=== PATIENT | male | born 1960 | race Caucasian/White ===

== ENCOUNTER → 2018-02-02 15:55 | Outpatient (CLI) | payer BC, SELFPAY ==
[2018-02-02 16:24] LABS: Absolute Lymphocyte Count 1.47 X10^3/ul (0.83-4.51); Absolute Neutrophil Count 2.6 X10^3/uL (2.0-7.7); Basophil# 0.03 X10^3/uL; Basophil% 0.6 % (0-1); Hematocrit 47.8 % (40-54); Hemoglobin 15.6 g/dl (13.0-16.5); Lymphocyte # 1.47 X10^3/ul (4.0); Lymphocyte % 29.3 % (19-41); Mean Corp Hgb Conc 32.6 g/gl (32-36); Mean Corpuscular Hgb 30.2 pg (27.0-32.0); Mean Corpuscular Volume 92.5 fL (80-94); Mean Platelet Vol. 9.8 fl (6.2-12.0); Monocyte# 0.81 X10^3/uL; Monocyte% 16.2 % (0-10); Neutrophil % 51.9 % (47-70); Platelet Count 245 K/mm3 (150-450); RBC Distribution Width CV 14.4 % (11.6-14.6); RBC Distribution Width SD 49.3 fl (35.1-43.9); Red Blood Count 5.17 M/mm3 (4.6-6.2)
[2018-02-02 16:25] LABS: POSITIVE COUNT NO; POSITIVE DIFFERENTIAL NO; POSITIVE MORPHOLOGY NO
[2018-02-02 17:31] LABS: ALB/GLOB Ratio 1.3 RATIO (0.9-2.4); AST(SGOT) 28 U/L (15-37); Alanine Aminotransfer ALT/SGPT 41 U/L (16-61); Albumin, Serum 3.8 g/dL (3.2-5.0); Alkaline Phosphatase 57 U/L (45-117); Anion Gap 7 (5-15); BUN 11 mg/dL (7-18); BUN/Creat Ratio 8.8 RATIO (10-20); Calcium,Total 8.6 mg/dL (8.5-10.1); Chloride 104 mmol/L (98-107); Creatinine, Serum 1.25 mg/dL (0.70-1.30); EST Glomerular Filtration Rate 63 mL/min (>60); Est Glom Filt Rate - Afr Amer 76 mL/min (>60); Glucose 73 mg/dL (74-106); Potassium 3.8 mmol/L (3.5-5.1); Protein, Total 6.8 g/dL (6.4-8.2); Sodium Level 142 mmol/L (136-145); Thyroid Stim Hormone (TSH) 0.76 uIU/mL (0.358-3.74)
== END ==
PROVIDERS: Family Provider Family Medicine Geriatric Medicine; PCP Family Medicine Geriatric Medicine; Visit Provider Family Medicine Geriatric Medicine
DX: F52.8 Other sexual dysfunction not due to a substance or known physiological condition (principal); I10 Essential (primary) hypertension
CPT/HCPCS: 36415; 80053; 84403; 84443; 85025

== ENCOUNTER → 2018-05-26 09:05 | Outpatient (CLI) | payer BC, SELFPAY ==
[2018-05-26 10:58] LABS: Hematocrit 49.3 % (40-54); Hemoglobin 15.9 g/dl (13.0-16.5); Mean Corp Hgb Conc 32.3 g/gl (32-36); Mean Corpuscular Hgb 30.2 pg (27.0-32.0); Mean Corpuscular Volume 93.5 fL (80-94); Mean Platelet Vol. 9.9 fl (6.2-12.0); Platelet Count 263 K/mm3 (150-450); RBC Distribution Width CV 15.1 % (11.6-14.6); Red Blood Count 5.27 M/mm3 (4.6-6.2); White Blood Count 5.5 K/mm3 (4.4-11.0)
[2018-05-26 10:59] LABS: Scan Indicated on CBC? Y/N NO
[2018-05-26 13:48] LABS: ALB/GLOB Ratio 1.2 RATIO (0.9-2.4); AST(SGOT) 52 U/L (15-37); Alanine Aminotransfer ALT/SGPT 68 U/L (16-61); Albumin, Serum 3.6 g/dL (3.2-5.0); Alkaline Phosphatase 64 U/L (45-117); Anion Gap 8 (5-15); BUN 13 mg/dL (7-18); BUN/Creat Ratio 10.4 RATIO (10-20); Calcium,Total 8.6 mg/dL (8.5-10.1); Chloride 105 mmol/L (98-107); Creatinine, Serum 1.25 mg/dL (0.70-1.30); EST Glomerular Filtration Rate 63 mL/min (>60); Est Glom Filt Rate - Afr Amer 76 mL/min (>60); Estradiol 47.1 pg/mL; Globulin 3.1 g/dL (2.2-4.2); Glucose 74 mg/dL (74-106); PSA,Total- Diagnostic 0.66 ng/mL (0.0-4.0); Potassium 3.9 mmol/L (3.5-5.1); Protein, Total 6.7 g/dL (6.4-8.2); Sodium Level 144 mmol/L (136-145)
== END ==
PROVIDERS: Family Provider Family Medicine Geriatric Medicine; PCP Family Medicine Geriatric Medicine
DX: E29.1 Testicular hypofunction (principal)
CPT/HCPCS: 80053; 82670; 84153; 85027

== ENCOUNTER → 2018-07-14 17:26 | Outpatient (CLI) | payer BC, SELFPAY ==
--- NOTE | 2018-07-14 17:50 | RAD_ITS ---
STUDY: X-RAY CHEST REASON FOR EXAM: Male, 58 years old. Preoperative left knee surgery TECHNIQUE: PA and lateral views of the chest. COMPARISON: 10/02/2013 FINDINGS: The lungs are clear and expanded. There is no demonstrated pleural abnormality. Normal size heart. Normal mediastinum and tashi. Normal visualized pulmonary arteries. Normal visualized aortic arch and descending thoracic aorta. Normal visualized thoracic spine. Normal visualized ribs, clavicles, and shoulders. There is no demonstrated abnormality of the visualized soft tissue structures of the upper abdomen. RAD/Chest PA and Lateral IMPRESSION: Normal x-ray examination of the chest. Electronically Signed: Ruddy Garza DO at 16:52 EDT Tel , Service support ,
[2018-07-14 17:52] LABS: Absolute Lymphocyte Count 1.26 X10^3/ul (0.83-4.51); Absolute Neutrophil Count 2.9 X10^3/uL (2.0-7.7); Basophil# 0.04 X10^3/uL; Basophil% 0.8 % (0-1); Eosinophil# 0.07 X10^3/uL; Eosinophils% 1.4 % (0-5); Hematocrit 48.9 % (40-54); Hemoglobin 16.2 g/dl (13.0-16.5); Lymphocyte # 1.26 X10^3/ul (4.0); Lymphocyte % 24.5 % (19-41); Mean Corp Hgb Conc 33.1 g/gl (32-36); Mean Corpuscular Hgb 30.8 pg (27.0-32.0); Mean Platelet Vol. 9.7 fl (6.2-12.0); Monocyte# 0.91 X10^3/uL; Monocyte% 17.7 % (0-10); Neutrophil # 2.86 X10^3/uL (2.7-7.7); Neutrophil % 55.4 % (47-70); Platelet Count 237 K/mm3 (150-450); RBC Distribution Width CV 14.2 % (11.6-14.6); RBC Distribution Width SD 48.5 fl (35.1-43.9); Red Blood Count 5.26 M/mm3 (4.6-6.2); White Blood Count 5.2 K/mm3 (4.4-11.0)
[2018-07-14 17:53] LABS: POSITIVE COUNT NO; POSITIVE DIFFERENTIAL NO; POSITIVE MORPHOLOGY NO
[2018-07-14 17:55] LABS: Prothrombin Time (Protime)PT. 13.1 SECONDS (11.7-14.9)
[2018-07-14 17:56] LABS: Partial Thromboplast Time 26.2 Seconds (24.1-36.2)
[2018-07-14 18:14] LABS: Anion Gap 7 (5-15); BUN 16 mg/dL (7-18); BUN/Creat Ratio 12.5 RATIO (10-20); Calcium,Total 8.8 mg/dL (8.5-10.1); Chloride 104 mmol/L (98-107); Creatinine, Serum 1.28 mg/dL (0.70-1.30); EST Glomerular Filtration Rate 61 mL/min (>60); Est Glom Filt Rate - Afr Amer 74 mL/min (>60); Glucose 68 mg/dL (74-106); Potassium 4.2 mmol/L (3.5-5.1); Sodium Level 141 mmol/L (136-145)
== END ==
PROVIDERS: Family Provider Family Medicine Geriatric Medicine; PCP Family Medicine Geriatric Medicine; Referring Provider Family Medicine Geriatric Medicine; Visit Provider Family Medicine Geriatric Medicine
DX: Z01.810 Encounter for preprocedural cardiovascular examination (principal)
CPT/HCPCS: 36415; 71046; 80048; 85025; 85610; 85730

== ENCOUNTER 2018-08-14 15:36 | Emergency (ER) | payer BC, SELFPAY ==
[2018-08-14 15:41] VITALS: BP 142/80; PULSE 92; RESP 18; TEMP 36.8; O2SAT 95; BMI 28.0
--- NOTE | 2018-08-14 16:05 | ED.VISSUMM ---
- ER Visit Summary Date of Service: 08/14/18 Chief Complaint: Right knee pain History of Present Illness: The patient is a 58 M who presents with pain in his right knee that became worse today. Patient states he had recent right total knee replacement. Patient states he has been taking his oxycodone as prescribed. Patient states he called his surgeon's office on Wednesday to get a refill. Patient states he was not told that he had to go into the office to strip picker a prescription for a refill. Patient states the pain is constant but improves somewhat with elevation. Patient states the oxycodone does help with the pain however it only seems to last 3 hours instead of 4. Patient states he will go to his surgeon's office tomorrow to strip picker a refill of his prescription. Patient is just requesting a prescription to get him through until tomorrow. Physical Examination: Vital signs are stable. Patient is afebrile. Patient is in no acute distress. Musculoskeletal exam reveals tenderness and edema over the right knee. There is no erythema or warmth. There is no pain with short arc range of motion. Patient states the swelling is similar to his prior knee surgeries. Sensation was intact to light touch bilaterally. Posterior tibial pulses are equal bilaterally. The remaining physical exam is within normal limits. Emergency Department Course and Treatment: OARRS report was reviewed. Patient did have a prescription of oxycodone filled on 08/06/2018 for 7 days worth of oxycodone. Patient was given a prescription for 1 day supply of oxycodone. Patient will follow-up with his surgeon tomorrow for further refills. Patient understood and was agreeable with the plan. All questions were answered. Disposition: Discharge home Impression: Postoperative pain right knee This note was generated with My[employer] dictation software. It may contain incorrect words, spelling, and punctuation that were not noted in review of the chart prior to signing ED Disposition - Plan for ED Patient: Disposition: Home or Assisted Living Chief Complaint: Med Refill Diagnosis: Postoperative pain of right knee Instructions: Med Refill Prescriptions: Oxycodone [Oxyir] 5 mg PO Q4H PRN PRN 1 Days #6 tab PRN Reason: Pain Referrals: Gino Aponte Chi, MD [Primary Care Provider] -
--- NOTE | 2018-08-14 16:09 | ED.DCSUM_ITS ---
- ER Visit Summary Date of Service: 08/14/18 Chief Complaint: Right knee pain History of Present Illness: The patient is a 58 M who presents with pain in his right knee that became worse today. Patient states he had recent right total knee replacement. Patient states he has been taking his oxycodone as pr escribed. Patient states he called his surgeon's office on Wednesday to get a refill. 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 Patient states the pain is constant but improves somewhat with elevation. Patient states the oxycodone does help with the pain however it only seems to last 3 hours instead of 4. Patient states he will go to his surgeon's office tomorrow to pick and shovel man a refill of his prescription. Patient is just requesting a prescription to get him through until tomorrow. Physical Examination: Vital signs are stable. Patient is afebrile. Patient is in no acute distress. Musculoskeletal exam reveals tenderness and edema over the right knee. There is no erythema or warmth. There is no pain with short arc range of motion. Patient states the swelling is similar to his prior knee surgeries. Sensation was intact to light touch bilaterally. Posterior tibial pulses are equal bilaterally. The remaining physical exam is within normal limits. Emergency Department Course and Treatment: OARRS report was reviewed. Patient did have a prescription of oxycodone filled on 08/06/2018 for 7 days worth of oxycodone. Patient was given a prescription for 1 day supply of oxycodone. Patient will follow-up with his surgeon tomorrow for further refills. Patient understood and was agreeable with the plan. All questions were answered. Disposition: Discharge home Impression: Postoperative pain right knee This note was generated with [employer] dictation software. It may contain incorrect words, spelling, and punctuation that were not noted in review of the chart prior to signing ED Disposition - Plan for ED Patient: Disposition: Home or Assisted Living Chief Complaint: Med Refill Diagnosis: Postoperative pain of right knee Instructions: Med Refill Prescriptions: Oxycodone [Oxyir] 5 mg PO Q4H PRN PRN 1 Days #6 tab PRN Reason: Pain Referrals: Gino Aponte Chi, MD [Primary Care Provider] -
== END 2018-08-14 16:17 | disposition home or self-care (01) ==
PROVIDERS: Emergency Provider Emergency Medicine; Family Provider Family Medicine Geriatric Medicine; PCP Family Medicine Geriatric Medicine
DX: M25.561 Pain in right knee (principal); G89.18 Other acute postprocedural pain; Z96.651 Presence of right artificial knee joint
CPT/HCPCS: 99282

== ENCOUNTER → 2018-09-12 15:58 | Outpatient (CLI) | payer BC, SELFPAY ==
[2018-09-12 17:09] LABS: Absolute Lymphocyte Count 1.34 X10^3/ul (0.83-4.51); Absolute Neutrophil Count 4.9 X10^3/uL (2.0-7.7); Basophil# 0.02 X10^3/uL; Basophil% 0.3 % (0-1); Eosinophil# 0.06 X10^3/uL; Eosinophils% 0.8 % (0-5); Hematocrit 49.6 % (40-54); Hemoglobin 16.2 g/dl (13.0-16.5); Lymphocyte # 1.34 X10^3/ul (4.0); Lymphocyte % 18.1 % (19-41); Mean Corp Hgb Conc 32.7 g/gl (32-36); Mean Corpuscular Hgb 30.5 pg (27.0-32.0); Mean Corpuscular Volume 93.2 fL (80-94); Mean Platelet Vol. 10.1 fl (6.2-12.0); Monocyte# 1.05 X10^3/uL; Monocyte% 14.2 % (0-10); Neutrophil # 4.92 X10^3/uL (2.7-7.7); Neutrophil % 66.5 % (47-70); Platelet Count 264 K/mm3 (150-450); RBC Distribution Width CV 14.2 % (11.6-14.6); RBC Distribution Width SD 48.5 fl (35.1-43.9); Red Blood Count 5.32 M/mm3 (4.6-6.2); White Blood Count 7.4 K/mm3 (4.4-11.0)
[2018-09-12 17:10] LABS: POSITIVE COUNT NO; POSITIVE DIFFERENTIAL NO; POSITIVE MORPHOLOGY NO
[2018-09-12 17:34] LABS: AST(SGOT) 37 U/L (15-37); Alanine Aminotransfer ALT/SGPT 76 U/L (16-61); Albumin, Serum 3.5 g/dL (3.2-5.0); Alkaline Phosphatase 72 U/L (45-117); Anion Gap 11 (5-15); BUN 12 mg/dL (7-18); BUN/Creat Ratio 8.7 RATIO (10-20); Calcium,Total 8.7 mg/dL (8.5-10.1); Chloride 100 mmol/L (98-107); Creatinine, Serum 1.38 mg/dL (0.70-1.30); EST Glomerular Filtration Rate 56 mL/min (>60); Est Glom Filt Rate - Afr Amer 68 mL/min (>60); Globulin 3.5 g/dL (2.2-4.2); Glucose 79 mg/dL (74-106); PSA,Total - Annual Screen 0.67 ng/mL (0.00-4.00); Potassium 3.8 mmol/L (3.5-5.1); Sodium Level 141 mmol/L (136-145); Thyroid Stim Hormone (TSH) 0.69 uIU/mL (0.358-3.74)
--- OUTSIDE RECORDS SUMMARY | 2018-10-25 14:32 | XMS RPT_ITS ---
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 Result Comment: GFR Calc LAB L501.1300 10-20 RATIO Normal BUN/CRE 10.4 LAB L501.1500 6.4-8.2 g/dL T Normal PROT 6.7 LAB L501.1800 3.2-5.0 g/dL Normal ALB 3.6 LAB L501.1950 2.2-4.2 g/dL Normal GLOB 3.1 LAB L501.2000 0.9-2.4 RATIO Normal A/G 1.2 LAB L501.2200 8.5-10.1 mg/dL CA Normal 8.6 LAB L501.4100 15-37 U/L High AST 52 LAB L501.4305 45-117 U/L Normal ALK P 64 LAB L501.4405 16-61 U/L High ALT 68 LAB L501.4600 0.20-1.00 mg/dL T Normal BILI 0.60 LAB L501.5300 136-145 mmol/L NA Normal 144 LAB L501.5600 3.5-5.1 mmol/L K Normal 3.9 LAB L501.5900 98-107 mmol/L CL Normal 105 LAB L501.6100 21.0-32.0 mmol/L Normal CO2 31.0 LAB L501.6200 5-15 Normal GAP 8 Performed By: #### L500.4050, L501.9940, L3300.1750 #### [facility] [address] [place], [address] PSA,TOTAL- DIAGNOSTIC Collected: 05/26/2018 Status: F Source: [place] 9:05 AM [facility] REPOSITORY Order Comment: Comments: Dihydrotestosterone (DHT) (Frozen Plasma) TYPE CODE TESTS RESULT OUT OF RANGE REFERENCE UNITS LAB L501.9940 0.0-4.0 ng/mL PSA, Normal DIAGNOSTIC 0.66 Result Comment: This test was performed using the TPSA assay method for the [employer] chemistry system. Values obtained with different assay methods cannot be used interchangably. When changing PSA assays in the course of monitoring a patient, additional sequential testing should be carried out to confirm baseline values. Performed By: #### L500.4050, L501.9940, L3300.1750 #### [facility] [address] [place], [address] ESTRADIOL Collected: 05/26/2018 Status: F Source: [place] 9:05 AM [facility] REPOSITORY Order Comment: Comments: Dihydrotestosterone (DHT) (Frozen Plasma) TYPE CODE TESTS RESULT OUT OF RANGE REFERENCE UNITS LAB L3300.1750 pg/mL Normal ESTRADIOL 47.1 Result Comment: NORMAL REFERENCE RANGES FEMALE FOLLICULAR 21.4 - 164.8 pg/mL MID-CYCLE PEAK 49.9 - 367.2 pg/mL LUTEAL 40.2 - 259.0 pg/mL POST-MENOPAUSAL ON MHT <11.0 - 462.1 pg/mL NOT ON MHT <11.0 - 58.3 pg/mL MALE <11.0 - 52.5 pg/mL NOTE: [facility] HAS CONFIRMED THE DRUG FULVETRANT (FASLODEX) MAY CAUSE FALSELY ELEVATED ESTRADIOL RESULTS WHEN USING THIS TEST METHOD. IF PATIENT IS TAKING FULVESTRANT AN ALTERNATIVE METHOD SHOULD BE USED TO DETERMINE ESTRADIOL CONCENTRATION. Performed By: #### L500.4050, L501.9940, L3300.1750 #### [facility] [address] [place], [address] MISCELLANEOUS LAB Collected: 05/26/2018 Status: F Source: [place] PROCEDURE 9:05 AM [facility] REPOSITORY Order Comment: Comments: Dihydrotestosterone (DHT) (Frozen Plasma) Test(s) Ordered: Dihydrotestosterone (DHT) (Frozen Plasma) TYPE CODE TESTS RESULT OUT OF RANGE REFERENCE UNITS LAB L801.1541 Normal [facility] Result Comment: TEST RESULT UNITS REFERENCE INTERVAL Dihydrotestosterone 97 High ng/dL Reference Range: Adult Male: 30 - 85 TESTING PERFORMED AT [facility]. ORIGINAL REPORT ON FILE IN LAB CONTAINS ADDITIONAL TEST SITE INFORMATION. Performed By: #### L801.1541 #### [facility] [place], [address] CBC W/DIFF, AUTOMATED Collected: 02/02/2018 Status: F Source: [place] 3:57 PM [facility] REPOSITORY TYPE CODE TESTS RESULT OUT OF RANGE REFERENCE UNITS LAB L100.1000 4.4-11.0 K/mm3 Normal WBC 5.0 LAB L100.1200 4.6-6.2 M/mm3 Normal RBC 5.17 LAB L100.1300 13.0-16.5 g/dl Normal HGB 15.6 LAB L100.1400 40-54 % Normal HCT 47.8 LAB L100.1500 80-94 fL Normal MCV 92.5 LAB L100.1600 27.0-32.0 pg Normal MCH 30.2 LAB L100.1700 32-36 g/gl Normal MCHC 32.6 LAB L100.1810 11.6-14.6 % Normal RDW CV 14.4 LAB L100.1820 35.1-43.9 fl High RDW SD 49.3 LAB L100.1900 150-450 K/mm3 Normal PLT 245 LAB L100.2000 6.2-12.0 fl Normal MPV 9.8 LAB L100.2100 47-70 % Normal NEUT% 51.9 LAB L100.2200 19-41 % Normal LY% 29.3 LAB L100.2300 0-10 % High MONO% 16.2 LAB L100.2400 0-5 % Normal EO% 2.0 LAB L100.2500 0-1 % Normal BASO% 0.6 LAB L100.2550 0.0-0.9 % Normal IM GRAN % 0.000 Result Comment: IG% - Immature Granulocytes (promyelocytes, myelocytes and metamyelocytes) > 1% indicates that a LEFT SHIFT is Present. LAB L100.2620 2.0-7.7 X10 3/uL Normal Absolute Neut 2.6 LAB L100.2720 0.83-4.51 X10 3/ul Normal Absolute Lymph 1.47 Performed By: #### L100.0100 #### [facility] [address] [place], [address] COMPREHENSIVE METABOLIC Collected: 02/02/2018 Status: F Source: [place] LUC[place] 3:57 PM [facility] REPOSITORY TYPE CODE TESTS RESULT OUT OF RANGE REFERENCE UNITS LAB L501.0100 74-106 mg/dL Low GLU 73 Result Comment: Please note revised GLUCOSE reference range effective 2017. LAB L501.1000 7-18 mg/dL Normal BUN 11 LAB L501.1100 0.70-1.30 mg/dL Normal CREAT,SERUM 1.25 Result Comment: The validity of the calculated GFR AND GFRAA in patients over 70 years has not been determined. Clinical correlation is essential. LAB L501.1110 >60 mL/min Normal EST GFR 63 Result Comment: Non- GFR Calc LAB L501.1115 >60 mL/min Normal EST GFR - AA 76 Result Comment: GFR Calc LAB L501.1300 10-20 RATIO Low BUN/CRE 8.8 LAB L501.1500 6.4-8.2 g/dL Normal T PROT 6.8 LAB L501.1800 3.2-5.0 g/dL Normal ALB 3.8 LAB L501.1950 2.2-4.2 g/dL Normal GLOB 3.0 LAB L501.2000 0.9-2.4 RATIO Normal A/G 1.3 LAB L501.2200 8.5-10.1 mg/dL Normal CA 8.6 LAB L501.4100 15-37 U/L Normal AST 28 LAB L501.4305 45-117 U/L Normal ALK P 57 LAB L501.4405 16-61 U/L Normal ALT 41 LAB L501.4600 0.20-1.00 mg/dL Normal T BILI 0.20 LAB L501.5300 136-145 mmol/L Normal NA 142 LAB L501.5600 3.5-5.1 mmol/L Normal K 3.8 LAB L501.5900 98-107 mmol/L Normal CL 104 LAB L501.6100 21.0-32.0 mmol/L Normal CO2 31.0 LAB L501.6200 5-15 Normal GAP 7 Performed By: #### L500.4050, L501.9520 #### [facility] [address] [place], [address] THYROID STIM HORMONE Collected: 02/02/2018 Status: F Source: [place] (TSH) 3:57 PM [facility] REPOSITORY TYPE CODE TESTS RESULT OUT OF RANGE REFERENCE UNITS LAB L501.9520 0.358-3.74 uIU/mL Normal TSH 0.76 Performed By: #### L500.4050, L501.9520 #### [facility] [address] [place], [address] TESTOSTERONE, SERUM TOTAL Collected: 02/02/2018 Status: F Source: [place] 3:57 PM [facility] REPOSITORY TYPE CODE TESTS RESULT OUT OF REFERENCE UNITS RANGE LAB L509.3000 ng/dL Testosterone Normal > 1500.00 Result Comment: NORMAL REFERENCE RANGES MALE AGE <50 123.06 - 813.86 ng/dL MALE AGE >50 89.98 - 780.10 ng/dL FEMALE PREMENOPAUSE AGE 21 - 60 9.01 - 47.94 ng/dL FEMALE POSTMENOPAUSE AGE 45 - 89 <7.00 - 45.62 ng/dL REFERENCE RANGE AND METHODOLOGY CHANGED 10/06/2017 Performed By: #### L509.3000 #### [facility] [address] [place], [address] ALLERGIES ALLERGIES DATE TYPE / CODE NAME / CODE REACTION SEVERITY SOURCE 08/14/2018 Drug No Known Unknown [facility] Allergy/416 Allergies/K00111 Hospital 584082(SNOM 0388(RXNORM) Repository ED CT) Drug NO KNOWN [facility] Class/21066 ALLERGIES [facility] [place] 1003(SNOMED Repository CT) ENCOUNTERS ENCOUNTERS ADMIT/DISCHARGE ACCOUNT ADMITTING ENCOUNTER LOCATION SOURCE NUMBER CLASS 10/04/2018 [id number] [facility] ing:PT Repository 09/12/2018 [id number] [facility] ing:POLAB3 Repository 08/14/2018/08/14/20 [id number] Emergency [address] ing:ED Repository 07/18/2018/07/19/20 [id number] Ambulatory [address] Repository 07/14/2018 [id number] [facility] ing:LAB Repository 06/16/2018 [id number] [facility] ing:LAB.FUTUR Repository E 05/26/2018 [id number] Ambulatory [facility] ing:LABSPEC Repository 02/02/2018 [id number] [facility] ing:POLAB3 Repository PAYERS PAYERS ENCOUNTER GUARANTOR PAYER SUBSCRIBER SOURCE 10/04/2018 BERHANE A Primary BERHANE A [place] [id number] Insurance:ANTHEMPolic HUXLEYDOB: [facility] y Number: [id number] [id number] Repository 44[address]Fbi: (330) Date:1016-26-38AA [phone] () [id number] [place] [address] 48637NK: 10/04/2018 Secondary NOT GIVENUNK [place] Insurance:SELF PAY [facility] Number: Effective Repository Date:2018-08-03 09/12/2018 BERHANE A Primary BERHANE A [place] [id number] Insurance:ANTHEMPolic HUXLEYDOB: [facility] y Number: [id number] [id number] Repository 91952Wed: (330) Date:4026-12-67JC [phone] () [id number], [place] [address]PB: 09/12/2018 Secondary NOT GIVENUNK [place] Insurance:SELF PAY [facility] Number: Effective Repository Date:2018-09-12 08/14/2018 BERHANE A Primary BERHANE A [place] [id number] Insurance:ANTHEMPolic HUXLEYDOB: [facility] y Number: [id number] [id number] Repository 83[address]Gvk: (330) Date:4824-10-26IY [phone] () 769371FYTSRSDJOVANY ALY 175[address]FV: 08/14/2018 Secondary NOT GIVENUNK [place] Insurance:SELF PAY [facility] Number: Effective Repository Date:2018-08-14 07/14/2018 Ber[place] Primary BERHANE HUXLEYDOB: [place] [id number] Insurance:ANTHEMPolic [id number] y Number: [place], [place] [id number] Repository [address]Zff: (330) Date:7411-70-70LS [phone] () 018120KIPTYVMJOVANY ALY [address]14[address]JS: 07/14/2018 Secondary NOT GIVENUNK [place] Insurance:SELF PAY [facility] Number: Effective Repository Date:2018-07-14 06/16/2018 Berhane Primary BERHANE HUXLEYDOB: [place] [id number] Insurance:ANTHEMPolic [id number] y Number: [place], [place] [id number] Repository [address]Mde: (330) Date:4059-68-98BM [phone] () 074759WUECPMNJOVANY ALY [address]93[address]NR: 06/16/2018 Secondary NOT GIVENUNK [place] Insurance:SELF PAY [facility] Number: Effective Repository Date:2018-06-16 05/26/2018 Berhane Primary [place] HUXLEYDOB: [place] [id number] Insurance:ANTHEMPolic [id number] y Number: [place], [place] [id number] Repository [address]Yql: (330) Date:4528-63-48ZD [phone] () [id number] ALY [address]22[address]TR: 05/26/2018 Secondary NOT GIVENUNK [place] Insurance:SELF PAY [facility] Number: Effective Repository Date:2018-05-26 02/02/2018 Ber[place] Primary BENTON HUXLEYDOB: [place] [id number] Insurance:ANTHEMPolic [id number] [facility] y Number: [place], [place] [id number] Repository [address]Sbi: (330) Date:2532-30-44KA [phone] () [id number], [place] [address]YY: 02/02/2018 Secondary NOT GIVENUNK [place] Insurance:SELF PAY [facility] Number: Effective Repository Date:2018-02-02
== END ==
PROVIDERS: Family Provider Family Medicine Geriatric Medicine; PCP Family Medicine Geriatric Medicine; Visit Provider Family Medicine Geriatric Medicine
DX: E23.6 Other disorders of pituitary gland (principal); I10 Essential (primary) hypertension; Z12.5 Encounter for screening for malignant neoplasm of prostate
CPT/HCPCS: 36415; 80053; 84153; 84403; 84443; 85025; G0103

== ENCOUNTER 2018-10-07 09:00 | Outpatient (RCR) | payer BC, SELFPAY ==
--- NOTE | 2018-08-09 12:47 | HP.PTEVAL_ITS ---
Patient's Visit Information HYUN GUADALUPE is a 58 year old M referred to Physical Therapy by Juvenal Mead DO with a diagnosis of R knee OA, S/P TKA 08/08. Date of Evaluation: 08/09/18 Physical Therapist: Kofi Duvall DPT, OC - Visit Plan Frequency: 3x /Week Duration: 4-6 Weeks Plan: 3x/week for 4-6 weeks for: 1. knee ROM and patellar mobs. 2. knee and LE strength to tolerance. 3. gait training weaning walker/return to function activities(enjoys weight lifting). 4. steps. 5. ice as needed. - Subjective Subjective: Had full R TKA yesterday at [facility]. This was due to pain in R knee and three previous surgeries. Had L SUSY 5 yrs ago. Does not sleep well on pain pills, taking percoset as directed. It helps. pain today 9/10 in muscles from quad to calf and anterior knee. Using wh walker to get around, not needed prior. HEP: AP often, walks with walker in hallway a lot(every hour). Has SCDs at home. Has ice at home which he is using. Has 3 grandkids oldest 7. 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 Off for a while now. Likely 6 weeks. Can go back 1/2 day first week if needed. Dresses self, bathrroom self. 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 ADLS a chore but can do them. Lives alone and has two steps but has ramp. Neighbor drove him today. Enjoys weight lifting freeweights at [employer]. Wants to get back to that. Enjoys watching [employer] play soccer. - Pain R knee Pain Intensity (Out of 10): 4 Pain Intensity Range: 8 - Objective Walks mod I with wh walker 300 feet mod I. Without walker can ambulate safely but more noticeable L knee stiffness adn less heel off and toe off. Trasnfers with UE I. Bed mobility I. R Knee AROM -8 to 58 degrees today, L knee 0-125. patella on R is stiff all directions and painful, knee is mildly swollen and dressed appropriately with steve wrap. Hip and knee AROM WFL B. ankle strength B 5/5, hip flexion R 3+ with pain, abd 4/5. R knee strength NST but able to do 40 degree ARC of knee ext seated. Sensation B LE WNL to gross light touch. Standing balance is good with wide CHERELLE and R knee stays flexed until verbally cued. Pt is slow and hesitant with all R knee movements and lifts, SLR is painful and hard to do but able. - tamar,. - Goals Goal 1:: 0-115 aROM R knee to allow for ADLs without pain. Goal Time Frame: 4-6 Weeks Goal 2:: Patient walk in community without AD or increased pain Goal Time Frame: 4-6 Weeks Goal 3:: Steps reciprocally without rail Goal Time Frame: 4-6 Weeks Goal 4:: Have plan for patient to return to work Goal Time Frame: 4-6 Weeks Goal 5:: Pt feel back to 80% of activities with pain <1/10 Goal Time Frame: 4-6 Weeks - Rehabilitation Potential Physical Therapy Diagnosis: R knee s/p TKA 08/08 Rehabilitation Potential: Fair - Anticipated Interventions Patient/Client Instruction: Educate patient on: Condition, Plan of Care For the Purpose of:: To decrease pain, To increase ROM, To improve muscle performance and motor function, To increase tolerance to activity/condition/position, To improve ability of physical actions for home/community/work/leisure Therapeutic Exercise to Include: Strength training, Flexibilty training, Gait and locomotor training, Passive ROM, Active ROM For the Purpose of:: To decrease pain, To increase ROM, To improve muscle performance and motor function, To improve ability to perform ADL's, To increase tolerance to activity/condition/position, To improve ability of physical actions for home/community/work/leisure Manual Therapy Techniques to Include: Passive ROM Comment: patellar mobs For the Purpose of:: To increase ROM Cryotherapy (ice pack, ice massage): Yes For the Purpose of:: To decrease pain, To decrease swelling/inflammation Thank you for the opportunity to evaluate your patient. For Medicare and Medicare HMO plans, please review the plan of care and approve it. It will need to be FAXED BACK to us at [phone] for Medicare purposes. Please let me know if there are questions or concerns regarding this plan of care. Physician Signature: Date:
--- NOTE | 2018-09-27 15:24 | HP.PTREVAL ---
Juvenal Mead, DO, It has been my pleasure to treat HYUN GUADALUPE over the last 11 visits for R knee OA, S/P TKA 08/08. Please see the progress note below for an update on the physical therapy plan of care! Subjective: Motion is better. Has muscle soreness in medial R knee. Objective/Function: -2 to 105 degrees. -1 to 108 PROM after stretch. Walking wella nd ascending/[place] ending steps without rail with slight hitch on R descending. Plan Plan: 3-5x/week x 2-4 for ROM managemnt post manip. Continue manual and ROM, progress steps and back to strength when 110 AROM is easy. Goals Goal 1:: 0-115 aROM R knee to allow for ADLs without pain. Goal Time Frame: 4-6 Weeks Goal Progress: Progressing Goal 2:: Patient walk in community without AD or increased pain Goal Time Frame: 4-6 Weeks Goal Progress: Goal Met Goal 3:: Steps reciprocally without rail Goal Time Frame: 4-6 Weeks Goal Progress: Goal Met Goal 4:: Have plan for patient to return to work Goal Time Frame: 4-6 Weeks Goal Progress: approp Goal 5:: Pt feel back to 80% of activities with pain <1/10 Goal Time Frame: 4-6 Weeks Goal Progress: approp Anticipated Interventions Patient/Client Instruction: Educate patient on: Condition, Plan of Care For the Purpose of:: To decrease pain, To increase ROM, To improve muscle performance and motor function, To increase tolerance to activity/condition/position, To improve ability of physical actions for home/community/work/leisure Therapeutic Exercise to Include: Strength training, Flexibilty training, Gait and locomotor training, Passive ROM, Active ROM For the Purpose of:: To decrease pain, To increase ROM, To improve muscle performance and motor function, To improve ability to perform ADL's, To increase tolerance to activity/condition/position, To improve ability of physical actions for home/community/work/leisure Manual Therapy Techniques to Include: Passive ROM Comment: patellar mobs For the Purpose of:: To increase ROM Cryotherapy (ice pack, ice massage): Yes For the Purpose of:: To decrease pain, To decrease swelling/inflammation Please do not hesitate to contact me at [phone] by phone or if you have questions or concerns regarding this new plan of care! Sincerely, Kofi Duvall, DPT, OC
--- NOTE | 2018-10-07 10:58 | HP.PTDCSUM ---
HP - PT D/C Summary It has been my pleasure to treat HYUN GUADALUPE under orders from Juvenal Mead DO, for the diagnosis of R knee OA, S/P TKA 08/08 for a total of 18 visit(s). Discharge Date: 10/07/18 Please see the following information for a summary of their discharge status. - Subjective Subjective: Better every day. Pain level at 2/10 this week. Comfortable at rest. Feels loose. Climbed old school bleachers the other day withotu a problem. Couldn't do it for 15 years. Sleeping well. Sees doctor 10/12. Plans to return to Work when released hoepfull early October and half days if possible. activities at home normal. Back at ex at gym and not avoiding anything. that he wants to do. - Pain R knee Pain Intensity (Out of 10): 0 - Overall Improvement % Improvement: 95 - Objective Objective/Function: -2 to 112 AROM today. Walking well without antalgia, slight deficit in knee ext at plant. Steps are reciprocal and normal without rail, slight weakness descending. OVERALL DOING EXCELLENT AND LIKELY WILL BE READY TO rtw IN NEW YEAR...WOULD RECOMMEND HALF DAYS FOR A WEEK IF AVAILABLE. - Goals Goal 1:: 0-115 aROM R knee to allow for ADLs without pain. Goal Progress: Progressing Goal 2:: Patient walk in community without AD or increased pain Goal Progress: Goal Met Goal 3:: Steps reciprocally without rail Goal Progress: Goal Met Goal 4:: Have plan for patient to return to work Goal Progress: Goal Met Goal 5:: Pt feel back to 80% of activities with pain <1/10 Goal Progress: Goal Met - Plan Plan: D/C - D/C Information Discharge Comments: Pt doign well and will f/u with doctor next week and likely RTW early next year. I recommend half days to start fro a week if available. If there are questions or concerns regarding this patient's physical therapy, please feel free to call me at [phone]. Thank you for the referral of this patient. Sincerely, Kofi Duvall, DPT, OCS, CSCS
== END 2018-10-07 19:00 | disposition home or self-care (01) ==
LOC: PT 09:00
PROVIDERS: Family Provider Family Medicine Geriatric Medicine; PCP Family Medicine Geriatric Medicine; Visit Provider Orthopaedic Surgery
DX: M17.11 Unilateral primary osteoarthritis, right knee (principal); M25.561 Pain in right knee
CPT/HCPCS: 97110; 97140; 97162; 97530

== ENCOUNTER → 2018-11-08 18:35 | Outpatient (CLI) | payer BC, SELFPAY ==
[2018-11-08 19:57] LABS: Hematocrit 51.7 % (40-54); Hemoglobin 16.9 g/dl (13.0-16.5); Mean Corp Hgb Conc 32.7 g/gl (32-36); Mean Corpuscular Hgb 30.7 pg (27.0-32.0); Mean Corpuscular Volume 93.8 fL (80-94); Mean Platelet Vol. 10.8 fl (6.2-12.0); Platelet Count 288 K/mm3 (150-450); RBC Distribution Width CV 14.6 % (11.6-14.6); RBC Distribution Width SD 49.8 fl (35.1-43.9); Red Blood Count 5.51 M/mm3 (4.6-6.2); Scan Indicated on CBC? Y/N NO; White Blood Count 5.3 K/mm3 (4.4-11.0)
[2018-11-08 20:08] LABS: AST(SGOT) 57 U/L (15-37); Alanine Aminotransfer ALT/SGPT 109 U/L (16-61); Albumin, Serum 3.5 g/dL (3.2-5.0); Alkaline Phosphatase 85 U/L (45-117); Anion Gap 8 (5-15); BUN 14 mg/dL (7-18); BUN/Creat Ratio 10.5 RATIO (10-20); Calcium,Total 8.3 mg/dL (8.5-10.1); Chloride 105 mmol/L (98-107); Creatinine, Serum 1.33 mg/dL (0.70-1.30); EST Glomerular Filtration Rate 58 mL/min (>60); Est Glom Filt Rate - Afr Amer 71 mL/min (>60); Estradiol 16.4 pg/mL; Globulin 3.5 g/dL (2.2-4.2); Glucose 60 mg/dL (74-106); Potassium 3.8 mmol/L (3.5-5.1); Sodium Level 142 mmol/L (136-145)
--- OUTSIDE RECORDS SUMMARY | 2019-01-10 23:25 | XMS RPT_ITS ---
:1960 Author Organization OHIP Care Team Providers Name Role Phone ROSETTA LAMB (RENÉE) Attending Unavailable GERBER BROWN Attending Unavailable Fadi, Gino Chi Primary Care Unavailable Fadi, Gino Chi Attending Unavailable Fadi, Gino Chi Primary Care Unavailable Fadi, Gino Chi Attending Unavailable Fadi, Gino Chi Referring Unavailable Fadi, Gino Chi Primary Care Unavailable Fadi, Gino Chi Attending Unavailable Fadi, Gino Chi Primary Care Unavailable Fadi, Gino Chi Primary Care Unavailable SchwDawood kovacsic Attending Unavailable Fadi, Gino Chi Attending Unavailable Fadi, Gino Chi Primary Care Unavailable GERBER BROWN Attending Unavailable GERBER BROWN Referring Unavailable Fadi, Gino Chi Primary Care Unavailable DulJuvenal holloway Attending Unavailable Fadi, Gino Chi Primary Care Unavailable PROBLEMS PROBLEMS DATE TYPE CONDITION / CODE ATTENDING STATUS SOURCE 10/12/2018 Unknown M17.11 - Unilateral Juvenal Mead Active [place] primary [facility] osteoarthritis, [facility] right knee / Repository M17.11(ICD-10) 08/14/2018 Unknown G89.18 - Other acute Kofi Bains Active [place] postprocedural pain [facility] / G89.18(ICD-10) Hospital Repository 07/14/2018 Unknown Z01.810 - Encounter Fadi, Gino Chi Active [place] for preprocedural [facility] cardiovascular Hospital examination / Repository Z01.810(ICD-10) 05/26/2018 Unknown 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 / Community E29.1(ICD-10) Hospital Repository PROCEDURES PROCEDURES No Procedure Records FoundRESULTS RESULTS CBC-COMPLETE BLOOD CNT Collected: 11/08/2018 Status: F Source: [place] NO DIFF 1:30 PM [facility] HOSPITAL REPOSITORY TYPE CODE TESTS RESULT OUT OF RANGE REFERENCE UNITS LAB L100.1000 4.4-11.0 K/mm3 Normal WBC 5.3 LAB L100.1200 4.6-6.2 M/mm3 Normal RBC 5.51 LAB L100.1300 13.0-16.5 g/dl High HGB 16.9 LAB L100.1400 40-54 % Normal HCT 51.7 LAB L100.1500 80-94 fL Normal MCV 93.8 LAB L100.1600 27.0-32.0 pg Normal MCH 30.7 LAB L100.1700 32-36 g/gl Normal MCHC 32.7 LAB L100.1810 11.6-14.6 % Normal RDW CV 14.6 LAB L100.1820 35.1-43.9 fl High RDW SD 49.8 LAB L100.1900 150-450 K/mm3 Normal PLT 288 LAB L100.2000 6.2-12.0 fl Normal MPV 10.8 Performed By: #### L100.0500 #### [facility] [address] [place], [address] COMPREHENSIVE METABOLIC Collected: 11/08/2018 Status: F Source: [facility] 1:30 PM [facility] REPOSITORY TYPE CODE TESTS RESULT OUT OF RANGE REFERENCE UNITS LAB L501.0100 74-106 mg/dL Low GLU 60 Result Comment: Please note revised GLUCOSE reference range effective 2017. LAB L501.1000 7-18 mg/dL Normal BUN 14 LAB L501.1100 0.70-1.30 mg/dL High CREAT,SERUM 1.33 Result Comment: The validity of the calculated GFR AND GFRAA in patients over 70 years has not been determined. Clinical correlation is essential. LAB L501.1110 >60 mL/min Low EST GFR 58 Result Comment: Non- GFR Calc LAB L501.1115 >60 mL/min Normal EST GFR - AA 71 Result Comment: GFR Calc LAB L501.1300 10-20 RATIO Normal BUN/CRE 10.5 LAB L501.1500 6.4-8.2 g/dL T Normal PROT 7.0 LAB L501.1800 3.2-5.0 g/dL Normal ALB 3.5 LAB L501.1950 2.2-4.2 g/dL Normal GLOB 3.5 LAB L501.2000 0.9-2.4 RATIO Normal A/G 1.0 LAB L501.2200 8.5-10.1 mg/dL Low CA 8.3 LAB L501.4100 15-37 U/L High AST 57 Result Comment: Slight Hemolysis, Result may be falsely increased. LAB L501.4305 45-117 U/L Normal ALK P 85 LAB L501.4405 16-61 U/L High ALT 109 LAB L501.4600 0.20-1.00 mg/dL Normal T BILI 0.30 LAB L501.5300 136-145 mmol/L Normal NA 142 LAB L501.5600 3.5-5.1 mmol/L Normal K 3.8 Result Comment: Slight Hemolysis, Result may be falsely increased. LAB L501.5900 98-107 mmol/L Normal CL 105 LAB L501.6100 21.0-32.0 mmol/L Normal CO2 29.0 LAB L501.6200 5-15 Normal 8 GAP Performed By: #### L500.4050, L3300.1750 #### [facility] [address] [place], [address] ESTRADIOL Collected: 11/08/2018 Status: F Source: [place] 1:30 PM [facility] REPOSITORY TYPE CODE TESTS RESULT OUT OF RANGE REFERENCE UNITS LAB L3300.1750 pg/mL Normal ESTRADIOL 16.4 Result Comment: NORMAL REFERENCE RANGES FEMALE FOLLICULAR [...] DETERMINE ESTRADIOL CONCENTRATION. Performed By: #### L500.4050, L3300.1750 #### [facility] [address] [place], [address] PT D/C SUMMARY (1) Observed: 10/10/2018 Status: F Source: [place] 6:39 AM [facility] REPOSITORY [facility] [address] [place] [address] [address] [place] [address] / REHABILITATION SERVICES DISCHARGE SUMMARY MR#: [id number] Acct: [id number] Name: BERHANE GUADALUPE Rep #: [id number] : 1960 58 From: Kofi Duvall DPT, OCS, CSCS Referring Dr.: Juvenal Mead Status: REG RCR Insurance: ANTHEM SELF PAY INSURANCE HP - PT D/C Summary It has been my pleasure to treat BERHANE GUADALUPE under orders from Juvenal Mead DO, for the diagnosis of R knee OA, S/P TKA 08/08 for a total of 18 visit(s). Discharge Date: 10/07/18 Please see the following information for a summary of their discharge status. - Subjective Subjective: Better every day. Pain level at 2/10 this week. Comfortable at rest. Feels loose. Climbed old school bleachers the other day withotu a problem. Couldn't do it for 15 years. Sleeping well. Sees doctor 10/12. Plans to return to Work when released hoepfull early October and half days if possible. activities at home normal. Back at ex at gym and not avoiding anything. that he wants to do. - Pain R knee Pain Intensity (Out of 10): 0 - Overall Improvement % Improvement: 95 - Objective Objective/Function: -2 to 112 AROM today. Walking well without antalgia, slight deficit in knee ext at plant. Steps are reciprocal and normal without rail, slight weakness descending. OVERALL DOING EXCELLENT AND LIKELY WILL BE READY TO rtw IN NEW YEAR...WOULD RECOMMEND HALF DAYS FOR A WEEK IF AVAILABLE. - Goals Goal 1:: 0-115 aROM R knee to allow for ADLs without pain. Goal Progress: Progressing Goal 2:: Patient walk in community without AD or increased pain Goal Progress: Goal Met Goal 3:: Steps reciprocally without rail Goal Progress: Goal Met Goal 4:: Have plan for patient to return to work Goal Progress: Goal Met Goal 5:: Pt feel back to 80% of activities with pain <1/10 Goal Progress: Goal Met - Plan Plan: D/C - D/C Information Discharge Comments: Pt doign well and will f/u with doctor next week and likely RTW early next year. I recommend half days to start fro a week if available. If there are questions or concerns regarding this patient's physical therapy, please feel free to call me at [phone]. Thank you for the referral of this patient. Sincerely, Kofi Duvall ALFREDT, OCS, CSCS <Electronically signed by Kofi Duvall DPT, OCS, CSCS> 10/10/18 0639 CC: Juvenal Mead; Gino Aponte MD EBG Signed RE-EVALUATION - PT (1) Observed: 09/29/2018 Status: F Source: [place] 9:07 AM [facility] REPOSITORY [facility] [address] [place] [address] Fax REEVALUATION / MEDICARE RECERTIFICATION PHYSICAL THERAPY MR#: [id number] Acct: [id number] Name: BERHANE GUADALUPE Rep #: [id number] : 1960 58 From: Kofi Duvall DPT, OCS, CSCS Referring Dr.: Juvenal Mead Status: REG RCR Insurance: ANTHEM SELF PAY INSURANCE Juvenal Mead, DO, It has been my pleasure to [...] do not hesitate to contact me at [phone] by phone or if you have questions or concerns regarding this new plan of care! Sincerely, Kofi Duvall, DPT, OC <Electronically signed by Kofi Duvall DPT, OCS, CSCS> 09/29/18 0907 CC: Juvenal Mead; Gino Aponte MD EBG Signed For Medicare only, by signing this I certify the plan of care. Physicians Signature Date CBC W/DIFF, AUTOMATED Collected: 09/12/2018 Status: F Source: [place] 3:59 PM [facility] REPOSITORY TYPE CODE TESTS RESULT OUT OF [...] Lymph 1.34 Performed By: #### L100.0100 #### [facility] [address], [place], [id number] TESTOSTERONE, SERUM TOTAL Collected: 09/12/2018 Status: F Source: [place] 3:59 PM [facility] REPOSITORY TYPE CODE TESTS RESULT OUT OF [...] CHANGED 10/06/2017 Performed By: #### L509.3000 #### [facility] [address], [place], [id number] COMPREHENSIVE METABOLIC Collected: 09/12/2018 Status: F Source: [place]UC[place] 3:59 PM [facility] REPOSITORY TYPE CODE TESTS RESULT OUT OF [...] Performed By: #### L500.4050, L501.9520, L501.9910 #### [facility] [address] [place], [address] THYROID STIM HORMONE Collected: 09/12/2018 Status: F Source: [place] (TSH) 3:59 PM [facility] REPOSITORY TYPE CODE TESTS RESULT OUT OF RANGE REFERENCE UNITS LAB L501.9520 0.358-3.74 uIU/mL Normal TSH 0.69 Performed By: #### L500.4050, L501.9520, L501.9910 #### [facility] [address] [place], [address] PSA,TOTAL - ANNUAL Collected: 09/12/2018 Status: F Source: [place] SCREEN 3:59 PM [facility] REPOSITORY TYPE CODE TESTS RESULT OUT OF RANGE REFERENCE UNITS LAB L501.9910 0.00-4.00 ng/mL Normal PSA,TOT 0.67 SCREEN Result Comment: This test was performed using the TPSA assay method for the griddig chemistry system. Values obtained with different assay methods cannot be used interchangably. When changing PSA assays in the course of monitoring a patient, additional sequential testing should be carried out to confirm baseline values. Performed By: #### L500.4050, L501.9520, L501.9910 #### [facility] [address] 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 Patient states the pain is constant but improves somewhat with elevation. Patient states the oxycodone does help with the pain however it only seems to last 3 hours instead of 4. Patient states he will go to his surgeon's office tomorrow to bean picker machine operator a refill of his prescription. Patient is [...] right knee This note was generated with [employer] dictation software. It may contain incorrect words, [...] problems, contact your Primary Care Provider. Call [email or web address] ([phone]) or report to the closest Emergency Room. Call 911 if necessary. 08/14/18 5371 <Electronically signed by Kofi Bains DO> Date Kofi Bains DO Cosigner Signature (If Indicated): Date CC: Gino Aponte MD INITAL EVALUATION (1) Observed: 08/10/2018 Status: F Source: [place] - PT 7:10 AM [facility] REPOSITORY [facility] [address] [place] [address] Fax REHABILITATION SERVICES INITIAL EVALUATION MR#: [id number] Acct: [id number] Name: BERHANE GUADALUPE Rep #: [id number] : 1960 58 From: Kofi SIMONT, OCS, CSCS Referring Dr.: Juvenal Mead Status: REG RCR Insurance: [employer] SELF PAY INSURANCE Patient's Visit Information BERHANE GUADALUPE is a 58 year old M referred to Physical Therapy by Juvenal Mead DO with a diagnosis of R knee OA, S/P TKA 08/08. Date of Evaluation: 08/09/18 Physical Therapist: Kofi Duvall DPT, OC - Visit Plan Frequency: 3x /Week Duration: 4-6 Weeks Plan: 3x/week for 4-6 weeks for: 1. knee ROM and patellar mobs. 2. knee and LE strength to tolerance. 3. gait training weaning walker/return to function activities(enjoys weight lifting). 4. steps. 5. ice as needed. - Subjective Subjective: Had full R TKA yesterday at [facility]. This was due to pain in R [...] is using. Has 3 grandkids oldest 7. 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 Off for a while now. Likely 6 weeks. Can go back 1/2 day first week if needed. Dresses self, bathrroom self. Has seat loop tacker form hip surgery. ADLS a chore but can do them. Lives alone and has two steps but has ramp. Neighbor drove him today. Enjoys weight lifting freeweights at [employer]. Wants to get back to that. Enjoys watching grandkids play soccer. - Pain R knee Pain [...] to be FAXED BACK to us at [phone] for Medicare purposes. Please let me know if there are questions or concerns regarding this plan of care. Physician Signature: Date: <Electronically signed by Kofi Duvall DPT, OCS, CSCS> 08/10/18 0710 CC: Juvenal Mead; Gino Aponte MD EBG Signed For Medicare only, by signing this I certify the plan of care. Physicians Signature Date PROGRESS Observed: 07/18/2018 Status: COMPLETED Source: [place] 8:52 AM [facility] REPOSITORY O ID: [id number] Author: Rosetta Paige) Mark Service: (none) Author Type: Physician Lime Boiler Type: Progress Notes Filed: 07/18/2018 9:07 AM [...] AND LATERAL Observed: 07/14/2018 Status: F Source: [place] 5:50 PM [facility] REPOSITORY [facility] Imaging Services [facility] [place] [address] Chest PA and Lateral MR#: [id number] Acct: [id number] Name: BERHANE GUADALUPE Rep #: [id number] : 1960 M 58 From: Ruddy Garza DO PCP: Gino Aponte MD, Chi Status: REG CLI Study: Chest PA and Lateral Date of Exam: 07/14/18 Exam# [id number] Ordering Dr: Gino Aponte MD STUDY: X-RAY [...] Service support , CC: Gino Aponte MD Fruit Bar Maker: Signed CBC W/DIFF, AUTOMATED Collected: 07/14/2018 Status: F Source: [place] 5:34 PM [facility] REPOSITORY TYPE CODE TESTS RESULT OUT OF [...] Lymph 1.26 Performed By: #### L100.0100 #### [facility] [address] [place], [address] PROTHROMBIN TIME W/INR Collected: 07/14/2018 Status: F Source: [place] 5:34 PM [facility] REPOSITORY TYPE CODE TESTS RESULT OUT OF RANGE REFERENCE UNITS LAB L300.4150 11.7-14.9 SECONDS Normal PROTIME 13.1 LAB L300.4200 Normal INR 1.0 Performed By: #### L300.3900, L300.4310 #### [facility] [address] [place], [address] PARTIAL THROMBOPLAST Collected: 07/14/2018 Status: F Source: [place] TIME 5:34 PM [facility] REPOSITORY TYPE CODE TESTS RESULT OUT OF RANGE REFERENCE UNITS LAB L300.4310 24.1-36.2 Seconds Normal PTT 26.2 Performed By: #### L300.3900, L300.4310 #### [facility] [address] [place], [place], [address] BASIC METABOLIC Collected: 07/14/2018 Status: F Source: [place] PROFILE (BMP) 5:34 PM [facility] REPOSITORY TYPE CODE TESTS RESULT OUT OF [...] GAP 7 Performed By: #### L500.2500 #### [facility] [address] [place], [address] CBC-COMPLETE BLOOD CNT Collected: 05/26/2018 Status: F Source: [place] NO DIFF 9:05 AM [facility] REPOSITORY TYPE CODE TESTS RESULT OUT OF [...] MPV 9.9 Performed By: #### L100.0500 #### [facility] [address] [place], [address] COMPREHENSIVE METABOLIC Collected: 05/26/2018 Status: F Source: [facility] 9:05 AM [facility] REPOSITORY Order Comment: Comments: Dihydrotestosterone (DHT) (Frozen [...] Performed By: #### L500.4050, L501.9940, L3300.1750 #### [facility] [address] [place], [address] PSA,TOTAL- DIAGNOSTIC Collected: 05/26/2018 Status: F Source: [place] 9:05 AM [facility] REPOSITORY Order Comment: Comments: Dihydrotestosterone (DHT) (Frozen Plasma) TYPE CODE TESTS RESULT OUT OF RANGE REFERENCE UNITS LAB L501.9940 0.0-4.0 ng/mL PSA, Normal DIAGNOSTIC 0.66 Result Comment: This test was performed using the TPSA assay method for the griddig chemistry system. Values obtained with different assay methods cannot be used interchangably. When changing PSA assays in the course of monitoring a patient, additional sequential testing should be carried out to confirm baseline values. Performed By: #### L500.4050, L501.9940, L3300.1750 #### [facility] [address] [place], [address] ESTRADIOL Collected: 05/26/2018 Status: F Source: [place] 9:05 [facility] REPOSITORY Order Comment: Comments: Dihydrotestosterone (DHT) (Frozen [...] Performed By: #### L500.4050, L501.9940, L3300.1750 #### [facility] [address] [place], [address] MISCELLANEOUS LAB Collected: 05/26/2018 Status: F Source: [place] PROCEDURE 9:05 AM [facility] REPOSITORY Order Comment: Comments: Dihydrotestosterone (DHT) (Frozen Plasma) Test(s) Ordered: Dihydrotestosterone (DHT) (Frozen Plasma) TYPE CODE TESTS RESULT OUT OF RANGE REFERENCE UNITS LAB L801.1541 Normal [facility] LAB TEST Result Comment: TEST RESULT UNITS REFERENCE INTERVAL Dihydrotestosterone 97 High ng/dL Reference Range: Adult Male: 30 - 85 TESTING PERFORMED AT [facility]. ORIGINAL REPORT ON FILE IN LAB CONTAINS ADDITIONAL TEST SITE INFORMATION. Performed By: #### L801.1541 #### [facility] [address] [place], [address] CBC W/DIFF, AUTOMATED Collected: 02/02/2018 Status: F Source: [place] 3:57 PM [facility] REPOSITORY TYPE CODE TESTS RESULT OUT OF [...] Lymph 1.47 Performed By: #### L100.0100 #### [facility] [address] [place] [address]. [place], [address] COMPREHENSIVE METABOLIC Collected: 02/02/2018 Status: F Source: [facility] 3:57 PM [facility] REPOSITORY TYPE CODE TESTS RESULT OUT OF [...] 7 Performed By: #### L500.4050, L501.9520 #### [facility] [address], [place], [address] THYROID STIM HORMONE Collected: 02/02/2018 Status: F Source: [place] (TSH) 3:57 PM [facility] REPOSITORY TYPE CODE TESTS RESULT OUT OF RANGE REFERENCE UNITS LAB L501.9520 0.358-3.74 uIU/mL Normal TSH 0.76 Performed By: #### L500.4050, L501.9520 #### [facility] [address] [place], [address] TESTOSTERONE, SERUM TOTAL Collected: 02/02/2018 Status: F Source: [place] 3:57 PM [facility] REPOSITORY TYPE CODE TESTS RESULT OUT OF [...] CHANGED 10/06/2017 Performed By: #### L509.3000 #### [facility] [address], [address] ALLERGIES ALLERGIES DATE TYPE / CODE NAME / CODE REACTION SEVERITY SOURCE 08/14/2018 Drug No Known Unknown [facility] Allergy/416 Allergies/Y02564 Hospital 239272(SNOM 0388(RXNORM) Repository ED CT) Drug NO KNOWN [facility] Class/56217 ALLERGIES [facility] 1003(SNOMED Repository CT) ENCOUNTERS ENCOUNTERS ADMIT/DISCHARGE ACCOUNT ADMITTING ENCOUNTER LOCATION SOURCE NUMBER CLASS 11/08/2018 [id number] [facility] ing:LABSPEC Repository 10/07/2018/10/07/20 [id number] Ambulatory [address] ing:PT Repository 09/12/2018 [id number] Ambulatory [facility] ing:POLAB3 Repository 08/14/2018/08/14/20 [id number] Emergency [address] ing:ED Repository 07/18/2018/07/19/20 [id number] Ambulatory [address] Repository 07/14/2018 [id number] Ambulatory [facility] ing:LAB Repository 06/16/2018 [id number] [facility] ing:LAB.FUTUR Repository E 05/26/2018 [id number] [facility] ing:LABSPEC Repository 02/02/2018 [id number] [facility] ing:POLAB3 Repository PAYERS PAYERS ENCOUNTER GUARANTOR PAYER SUBSCRIBER SOURCE 11/08/2018 BERHANE A Primary BERHANE A [place] [id number] Insurance:ANTHEMPolic HUXLEYDOB: Community CHRISTINE y [place]: [id number] [id number] Repository [address]Fsw: (330) Date:0362-38-59EG [phone] () JOVANY DELACRUZ [address]BG: 11/08/2018 Secondary NOT GIVENUNK [place] Insurance:SELF PAY [facility] Number: Effective Repository Date:2018-11-08 10/07/2018 BERHANE A Primary BERHANE A [place] [id number] Insurance:ANTHEMPolic HUXLEYDOB: Community CHRISTINE y Number: [id number] [facility] [id number] Repository [address]Ekd: (330) Date:6679-74-64CG [phone] () JOVANY DELACRUZ [address]ZI: 10/07/2018 Secondary NOT GIVENUNK [place] Insurance:SELF PAY [facility] Number: Effective Repository Date:2018-08-03 09/12/2018 BERHANE A Primary BERHANE A [place] [id number] Insurance:ANTHEMPolic HUXLEYDOB: Community CHRISTINE y Number: [id number] Central Community [id number] Repository [address]Osr: (330) Date:3141-36-27KV [phone] () [id number], [place] [address]GP: 09/12/2018 Secondary NOT GIVENUNK [place] Insurance:SELF PAY [facility] Number: Effective Repository Date:2018-09-12 08/14/2018 BERHANE A Primary BERHANE A [place] [id number] Insurance:ANTHEMPolic HUXLEYDOB: Community CHRISTINE y Number: [id number] [id number] Repository [address]Sen: (330) Date:2222-97-24JL [phone] () [id number] ALY [address]EG: 08/14/2018 Secondary NOT GIVENUNK [place] [facility] Effective Repository Date:2018-08-14 07/14/2018 Berhane Primary BERHANELUISITO GUADALUPEDOB: [place] [id number] Insurance:ANTHEMPolic [id number] Community Christine y [facility]: [id number] Repository [address]Oqn: (330) Date:4040-33-52UM [phone] () [id number], [place] [address]ZX: 07/14/2018 Secondary NOT GIVENUNK [place] Insurance:SELF PAY [facility] Number: Effective Repository Date:2018-07-14 06/16/2018 Berhane Primary BERHANE GUADALUPEDOB: [place] [id number] Insurance:ANTHEMPolic [id number] y [facility]: [id number] Repository [address]Vod: (330) Date:1768-29-04SP [phone] () [address], [place] [address]IK: 06/16/2018 Secondary NOT GIVENUNK [place] Insurance:SELF PAY [facility] Number: Effective Repository Date:2018-06-16 05/26/2018 Berhane Primary BENTON GUADALUPEDOB: [place] [id number] Insurance:ANTHEMPolic [id number] [facility] y Number: [place], [place] [id number] Repository [address]Rqp: (330) Date:9194-88-92AV [phone] () 475[address]GJVJBFM, [place] [address]HS: 05/26/2018 Secondary NOT GIVENUNK [place] Insurance:SELF PAY [facility] Number: Effective Repository Date:2018-05-26 02/02/2018 Berhane Primary BENTON COLLINSDOB: [place]onal[place] [id number] Insurance:ANTHEMPolic [id number] Community [place] y Number: [facility] [id number] Repository [address]Qfy: (330) Date:5771-53-44WR [phone] () [address]KLNQU, [place] [address]IV: 02/02/2018 Secondary NOT GIVENUNK [place] Insurance:SELF PAY [facility]: Effective Repository Date:2018-02-02
== END ==
PROVIDERS: Family Provider Family Medicine Geriatric Medicine; PCP Family Medicine Geriatric Medicine
DX: E29.1 Testicular hypofunction (principal)
CPT/HCPCS: 80053; 82670; 85027

== ENCOUNTER → 2019-02-28 17:06 | Outpatient (CLI) | payer BC, SELFPAY ==
[2019-02-28 17:33] LABS: Hematocrit 49.5 % (40-54); Hemoglobin 16.6 g/dl (13.0-16.5); Mean Corp Hgb Conc 33.5 g/gl (32-36); Mean Corpuscular Hgb 31.2 pg (27.0-32.0); Mean Platelet Vol. 10.4 fl (6.2-12.0); Platelet Count 220 K/mm3 (150-450); RBC Distribution Width CV 14.2 % (11.6-14.6); RBC Distribution Width SD 48.2 fl (35.1-43.9); Red Blood Count 5.32 M/mm3 (4.6-6.2); White Blood Count 5.6 K/mm3 (4.4-11.0)
[2019-02-28 17:48] LABS: Scan Indicated on CBC? Y/N NO
[2019-02-28 18:54] LABS: ALB/GLOB Ratio 1.4 RATIO (0.9-2.4); AST(SGOT) 27 U/L (15-37); Alanine Aminotransfer ALT/SGPT 48 U/L (16-61); Albumin, Serum 3.9 g/dL (3.2-5.0); Alkaline Phosphatase 70 U/L (45-117); Anion Gap 7 (5-15); BUN 21 mg/dL (7-18); BUN/Creat Ratio 15.2 RATIO (10-20); Calcium,Total 8.6 mg/dL (8.5-10.1); Chloride 103 mmol/L (98-107); Creatinine, Serum 1.38 mg/dL (0.70-1.30); EST Glomerular Filtration Rate 56 mL/min (>60); Est Glom Filt Rate - Afr Amer 68 mL/min (>60); Estradiol 72.5 pg/mL; Globulin 2.8 g/dL (2.2-4.2); Glucose 86 mg/dL (74-106); Potassium 3.8 mmol/L (3.5-5.1); Protein, Total 6.7 g/dL (6.4-8.2); Sodium Level 140 mmol/L (136-145)
== END ==
PROVIDERS: Family Provider Family Medicine Geriatric Medicine; PCP Family Medicine Geriatric Medicine
DX: E29.1 Testicular hypofunction (principal)
CPT/HCPCS: 80053; 82670; 85027

== ENCOUNTER → 2019-03-14 13:43 | Outpatient (CLI) | payer BC, SELFPAY ==
[2019-03-14 17:29] LABS: Absolute Lymphocyte Count 1.74 X10^3/ul (0.83-4.51); Absolute Neutrophil Count 4.9 X10^3/uL (2.0-7.7); Basophil# 0.04 X10^3/uL; Basophil% 0.5 % (0-1); Eosinophil# 0.15 X10^3/uL; Eosinophils% 1.9 % (0-5); Hematocrit 49.4 % (40-54); Hemoglobin 16.9 g/dl (13.0-16.5); Lymphocyte # 1.74 X10^3/ul (4.0); Lymphocyte % 21.9 % (19-41); Mean Corp Hgb Conc 34.2 g/gl (32-36); Mean Corpuscular Hgb 30.6 pg (27.0-32.0); Mean Corpuscular Volume 89.3 fL (80-94); Mean Platelet Vol. 10.3 fl (6.2-12.0); Monocyte# 1.04 X10^3/uL; Monocyte% 13.1 % (0-10); Neutrophil # 4.94 X10^3/uL (2.7-7.7); Neutrophil % 62.3 % (47-70); Platelet Count 289 K/mm3 (150-450); RBC Distribution Width CV 14.2 % (11.6-14.6); RBC Distribution Width SD 46.6 fl (35.1-43.9); Red Blood Count 5.53 M/mm3 (4.6-6.2); White Blood Count 7.9 K/mm3 (4.4-11.0)
[2019-03-14 17:34] LABS: POSITIVE COUNT NO; POSITIVE DIFFERENTIAL NO; POSITIVE MORPHOLOGY NO
[2019-03-14 17:51] LABS: ALB/GLOB Ratio 1.5 RATIO (0.9-2.4); AST(SGOT) 31 U/L (15-37); Alanine Aminotransfer ALT/SGPT 48 U/L (16-61); Albumin, Serum 3.8 g/dL (3.2-5.0); Alkaline Phosphatase 66 U/L (45-117); Anion Gap 7 (5-15); BUN 13 mg/dL (7-18); BUN/Creat Ratio 10.9 RATIO (10-20); Calcium,Total 8.8 mg/dL (8.5-10.1); Chloride 107 mmol/L (98-107); Creatinine, Serum 1.19 mg/dL (0.70-1.30); EST Glomerular Filtration Rate 66 mL/min (>60); Est Glom Filt Rate - Afr Amer 80 mL/min (>60); Globulin 2.6 g/dL (2.2-4.2); Glucose 78 mg/dL (74-106); Potassium 4.1 mmol/L (3.5-5.1); Protein, Total 6.4 g/dL (6.4-8.2); Sodium Level 140 mmol/L (136-145); Thyroid Stim Hormone (TSH) 0.97 uIU/mL (0.358-3.74)
== END ==
PROVIDERS: Family Provider Family Medicine Geriatric Medicine; PCP Family Medicine Geriatric Medicine; Visit Provider Family Medicine Geriatric Medicine
DX: I10 Essential (primary) hypertension (principal); F52.8 Other sexual dysfunction not due to a substance or known physiological condition
CPT/HCPCS: 36415; 80053; 84403; 84443; 85025

== ENCOUNTER → 2019-04-19 09:15 | Outpatient (CLI) | payer BC, SELFPAY ==
[2019-04-19 11:23] LABS: Hematocrit 47.1 % (40-54); Hemoglobin 15.9 g/dl (13.0-16.5); Mean Corp Hgb Conc 33.8 g/gl (32-36); Mean Corpuscular Hgb 30.9 pg (27.0-32.0); Mean Corpuscular Volume 91.6 fL (80-94); Mean Platelet Vol. 10.1 fl (6.2-12.0); Platelet Count 287 K/mm3 (150-450); RBC Distribution Width SD 50.3 fl (35.1-43.9); Red Blood Count 5.14 M/mm3 (4.6-6.2); White Blood Count 4.9 K/mm3 (4.4-11.0)
[2019-04-19 11:31] LABS: Scan Indicated on CBC? Y/N NO
[2019-04-19 12:31] LABS: ALB/GLOB Ratio 1.3 RATIO (0.9-2.4); AST(SGOT) 34 U/L (15-37); Alanine Aminotransfer ALT/SGPT 60 U/L (16-61); Albumin, Serum 3.8 g/dL (3.2-5.0); Alkaline Phosphatase 55 U/L (45-117); Anion Gap 10 (5-15); BUN 11 mg/dL (7-18); BUN/Creat Ratio 8.1 RATIO (10-20); Calcium,Total 8.7 mg/dL (8.5-10.1); Chloride 106 mmol/L (98-107); Creatinine, Serum 1.36 mg/dL (0.70-1.30); EST Glomerular Filtration Rate 57 mL/min (>60); Est Glom Filt Rate - Afr Amer 69 mL/min (>60); Estradiol 14.3 pg/mL; Globulin 2.9 g/dL (2.2-4.2); Glucose 107 mg/dL (74-106); PSA,Total- Diagnostic 1.27 ng/mL (0.0-4.0); Potassium 3.8 mmol/L (3.5-5.1); Protein, Total 6.7 g/dL (6.4-8.2); Sodium Level 144 mmol/L (136-145)
[2019-04-22 16:06] LABS: Testosterone, % Free 4.97 % (1.50-4.20)
[2019-04-23 15:47] LABS: DHEA Sulfate 643.6 ug/dL (48.9-344.2); Testosterone, Total 666 ng/dL (264-916)
== END ==
PROVIDERS: Family Provider Family Medicine Geriatric Medicine; PCP Family Medicine Geriatric Medicine
DX: E29.1 Testicular hypofunction (principal)
CPT/HCPCS: 80053; 82627; 82670; 84153; 84402; 84403; 85027; 82626

== ENCOUNTER → 2019-09-19 16:33 | Outpatient (CLI) | payer BC, SELFPAY ==
[2019-09-19 17:18] LABS: Absolute Lymphocyte Count 1.69 X10^3/uL (0.83-4.51); Absolute Neutrophil Count 4.3 X10^3/uL (2.0-7.7); Basophil# 0.04 X10^3/uL; Basophil% 0.5 % (0-1); Eosinophil# 0.12 X10^3/uL; Eosinophils% 1.6 % (0-5); Hematocrit 46.8 % (40-54); Hemoglobin 15.5 g/dL (13.0-16.5); Lymphocyte # 1.69 X10^3/ul (4.0); Lymphocyte % 23.2 % (19-41); Mean Corp Hgb Conc 33.1 g/dL (32-36); Mean Corpuscular Hgb 31.6 pg (27.0-32.0); Mean Corpuscular Volume 95.3 fL (80-94); Mean Platelet Vol. 9.3 fl (6.2-12.0); Monocyte# 1.09 X10^3/uL; NRBC Flagged by Analyzer 0 % (0-5); Neutrophil # 4.29 X10^3/uL (2.7-7.7); Neutrophil % 58.9 % (47-70); Platelet Count 306 K/mm3 (150-450); RBC Distribution Width CV 15.2 % (11.6-14.6); RBC Distribution Width SD 53.5 fl (35.1-43.9); Red Blood Count 4.91 M/mm3 (4.6-6.2); White Blood Count 7.3 K/mm3 (4.4-11.0)
[2019-09-19 17:42] LABS: ALB/GLOB Ratio 1.1 RATIO (0.9-2.4); AST(SGOT) 30 U/L (15-37); Alanine Aminotransfer ALT/SGPT 45 U/L (16-61); Albumin, Serum 3.6 g/dL (3.2-5.0); Alkaline Phosphatase 56 U/L (45-117); Anion Gap 7 (5-15); BUN 15 mg/dL (7-18); BUN/Creat Ratio 11.8 RATIO (10-20); Calcium,Total 8.9 mg/dL (8.5-10.1); Chloride 104 mmol/L (98-107); Creatinine, Serum 1.27 mg/dL (0.70-1.30); EST Glomerular Filtration Rate 61 mL/min (>60); Est Glom Filt Rate - Afr Amer 74 mL/min (>60); Globulin 3.2 g/dL (2.2-4.2); Glucose 79 mg/dL (74-106); Potassium 4.2 mmol/L (3.5-5.1); Protein, Total 6.8 g/dL (6.4-8.2); Sodium Level 138 mmol/L (136-145); Thyroid Stim Hormone (TSH) 1.32 uIU/mL (0.358-3.74)
== END ==
PROVIDERS: Family Provider Family Medicine Geriatric Medicine; PCP Family Medicine Geriatric Medicine; Visit Provider Family Medicine Geriatric Medicine
DX: F52.8 Other sexual dysfunction not due to a substance or known physiological condition (principal); I10 Essential (primary) hypertension; Z12.5 Encounter for screening for malignant neoplasm of prostate
CPT/HCPCS: 36415; 80053; 84153; 84403; 84443; 85025; G0103

== ENCOUNTER → 2020-01-31 16:31 | Outpatient (CLI) | payer BC, SELFPAY ==
--- NOTE | 2020-01-31 16:45 | RAD_ITS ---
STUDY: X-RAY CHEST REASON FOR EXAM: Male, 59 years old. Preoperative exam TECHNIQUE: Frontal and lateral views of the chest COMPARISON: 07/07/2017 FINDINGS: The lungs are clear. There are no pleural effusions. There is no pneumothorax. The heart is normal in size. The visualized osseous structures are within normal limits. RAD/Chest PA and Lateral IMPRESSION: No acute thoracic pathology. Electronically Signed: Jr Larose, at 16:57 EDT Tel , Service support ,
[2020-01-31 17:05] LABS: Absolute Neutrophil Count 3.7 X10^3/uL (2.0-7.7); Basophil# 0.05 X10^3/uL; Basophil% 0.8 % (0-1); Eosinophil# 0.06 X10^3/uL; Hematocrit 47.7 % (40-54); Hemoglobin 16.2 g/dL (13.0-16.5); Lymphocyte % 23.1 % (19-41); Mean Corpuscular Volume 94.1 fL (80-94); Mean Platelet Vol. 9.4 fl (6.2-12.0); Monocyte# 0.84 X10^3/uL; Monocyte% 13.9 % (0-10); NRBC Flagged by Analyzer 0 % (0-5); Neutrophil # 3.68 X10^3/uL (2.7-7.7); Neutrophil % 60.7 % (47-70); Platelet Count 268 K/mm3 (150-450); RBC Distribution Width CV 15.4 % (11.6-14.6); RBC Distribution Width SD 52.9 fl (35.1-43.9); Red Blood Count 5.07 M/mm3 (4.6-6.2); White Blood Count 6.1 K/mm3 (4.4-11.0)
[2020-01-31 17:28] LABS: International Normalized Ratio 1.1; Prothrombin Time (Protime)PT. 13.2 SECONDS (11.7-14.9)
[2020-01-31 17:29] LABS: Partial Thromboplast Time 28.2 Seconds (24.1-36.2)
[2020-01-31 17:48] LABS: ALB/GLOB Ratio 1.1 RATIO (0.9-2.4); AST(SGOT) 41 U/L (15-37); Alanine Aminotransfer ALT/SGPT 47 U/L (16-61); Albumin, Serum 3.7 g/dL (3.2-5.0); Alkaline Phosphatase 53 U/L (45-117); Anion Gap 7 (5-15); BUN 13 mg/dL (7-18); BUN/Creat Ratio 10.6 RATIO (10-20); Chloride 101 mmol/L (98-107); Creatinine, Serum 1.23 mg/dL (0.70-1.30); EST Glomerular Filtration Rate 64 mL/min (>60); Est Glom Filt Rate - Afr Amer 77 mL/min (>60); Globulin 3.4 g/dL (2.2-4.2); Glucose 75 mg/dL (74-106); Potassium 3.9 mmol/L (3.5-5.1); Protein, Total 7.1 g/dL (6.4-8.2); Sodium Level 135 mmol/L (136-145)
== END ==
PROVIDERS: PCP Family Medicine Geriatric Medicine; Referring Provider Family Medicine Geriatric Medicine; Visit Provider Family Medicine Geriatric Medicine
DX: Z01.818 Encounter for other preprocedural examination (principal)
CPT/HCPCS: 36415; 71046; 80053; 85025; 85610; 85730

== ENCOUNTER 2020-03-28 09:30 | Outpatient (RCR) | payer BC, SELFPAY ==
[2020-03-25 17:10] LABS: Absolute Lymphocyte Count 1.52 X10^3/uL (0.83-4.51); Absolute Neutrophil Count 7.1 X10^3/uL (2.0-7.7); Basophil# 0.07 X10^3/uL; Basophil% 0.7 % (0-1); Eosinophil# 0.08 X10^3/uL; Eosinophils% 0.8 % (0-5); Hematocrit 48.3 % (40-54); Hemoglobin 15.6 g/dL (13.0-16.5); Lymphocyte # 1.52 X10^3/ul (4.0); Lymphocyte % 15.7 % (19-41); Mean Corp Hgb Conc 32.3 g/dL (32-36); Mean Corpuscular Hgb 30.2 pg (27.0-32.0); Mean Corpuscular Volume 93.6 fL (80-94); Mean Platelet Vol. 9.7 fl (6.2-12.0); Monocyte% 9.3 % (0-10); NRBC Flagged by Analyzer 0 % (0-5); Neutrophil # 7.07 X10^3/uL (2.7-7.7); Neutrophil % 73.3 % (47-70); Platelet Count 279 K/mm3 (150-450); RBC Distribution Width CV 13.2 % (11.6-14.6); RBC Distribution Width SD 45.3 fl (35.1-43.9); Red Blood Count 5.16 M/mm3 (4.6-6.2); White Blood Count 9.7 K/mm3 (4.4-11.0)
[2020-03-25 17:37] LABS: ALB/GLOB Ratio 1.1 RATIO (0.9-2.4); AST(SGOT) 36 U/L (15-37); Alanine Aminotransfer ALT/SGPT 41 U/L (16-61); Albumin, Serum 3.7 g/dL (3.2-5.0); Alkaline Phosphatase 72 U/L (45-117); Anion Gap 8 (5-15); BUN 11 mg/dL (7-18); BUN/Creat Ratio 8.3 RATIO (10-20); Calcium,Total 9.1 mg/dL (8.5-10.1); Chloride 99 mmol/L (98-107); Creatinine, Serum 1.32 mg/dL (0.70-1.30); EST Glomerular Filtration Rate 59 mL/min (>60); Est Glom Filt Rate - Afr Amer 71 mL/min (>60); Globulin 3.5 g/dL (2.2-4.2); Glucose 83 mg/dL (74-106); Potassium 3.9 mmol/L (3.5-5.1); Protein, Total 7.2 g/dL (6.4-8.2); Sodium Level 136 mmol/L (136-145); Thyroid Stim Hormone (TSH) 1.31 uIU/mL (0.358-3.74)
--- NOTE | 2020-03-28 10:00 | HP.PTDCSUM ---
It has been my pleasure to treat HYUN GUADALUPE referred by BALJINDER RIVERA, with the diagnosis of R SUSY for a total of 13 visit(s). Discharge Date: 03/28/20 Please see the following information for a summary of their discharge status. Subjective: Pt. reports I am doing great. No pain. Pt. reports being 95% better overall. Pt. reports being HEP compliant. R SUSY Pain Intensity (Out of 10): 0 % Improvement: 95 Objective/Function: Pt. has good ROM and great strength. Minimal pain with all fuinctional mobility and strength. Pt. is to see physician next weed and Goal 1:: Decrease R hip pain x 50% to aid with sleep Goal Progress: Goal Met Goal 2:: Increase R LE strength x 1 grade to aid with stair negotiation Goal 3:: I with HEP Goal Progress: Goal Met Plan: recheck for d/c Discharge Comments: Pt. was seen for his R SUSY. Pt. did very well with strenghtening and functional mobility. Pt. reports no limiting issues. He has great strength and ROM at this point time. I do not see any physical limitations. Pt. will be DC from PT at this point in time. If there are questions or concerns regarding this patient's physical therapy, please feel free to call me at [phone]. Thank you for the referral of this patient. Sincerely, Salomon Hinson DPT
== END 2020-03-28 10:50 | disposition home or self-care (01) ==
LOC: PT 09:30
PROVIDERS: PCP Family Medicine Geriatric Medicine
DX: M16.11 Unilateral primary osteoarthritis, right hip (principal); G89.18 Other acute postprocedural pain; Z47.1 Aftercare following joint replacement surgery; F52.8 Other sexual dysfunction not due to a substance or known physiological condition; I10 Essential (primary) hypertension
CPT/HCPCS: 36415; 80053; 84403; 84443; 85025; 97110; 97161; 97164

== ENCOUNTER → 2020-08-28 13:49 | Outpatient (CLI) | payer BC, SELFPAY | PROVIDERS: PCP Family Medicine Geriatric Medicine; Visit Provider Family Medicine Geriatric Medicine | DX: R68.83 Chills (without fever) (principal) | CPT/HCPCS: 87633 ==

== ENCOUNTER → 2020-09-25 13:54 | Outpatient (CLI) | payer BC, SELFPAY ==
[2020-09-25 16:59] LABS: Absolute Lymphocyte Count 1.57 X10^3/uL (0.83-4.51); Absolute Neutrophil Count 3.7 X10^3/uL (2.0-7.7); Basophil# 0.05 X10^3/uL; Basophil% 0.8 % (0-1); Eosinophil# 0.11 X10^3/uL; Eosinophils% 1.7 % (0-5); Hematocrit 53.3 % (40-54); Hemoglobin 17.7 g/dL (13.0-16.5); Lymphocyte # 1.57 X10^3/ul (4.0); Lymphocyte % 24.5 % (19-41); Mean Corp Hgb Conc 33.2 g/dL (32-36); Mean Corpuscular Hgb 31.4 pg (27.0-32.0); Mean Corpuscular Volume 94.7 fL (80-94); Mean Platelet Vol. 9.6 fl (6.2-12.0); Monocyte# 0.98 X10^3/uL; Monocyte% 15.3 % (0-10); NRBC Flagged by Analyzer 0 % (0-5); Neutrophil # 3.68 X10^3/uL (2.7-7.7); Neutrophil % 57.2 % (47-70); Platelet Count 277 K/mm3 (150-450); RBC Distribution Width CV 15.4 % (11.6-14.6); RBC Distribution Width SD 53.8 fl (35.1-43.9); Red Blood Count 5.63 M/mm3 (4.6-6.2); White Blood Count 6.4 K/mm3 (4.4-11.0)
[2020-09-25 17:23] LABS: ALB/GLOB Ratio 1.1 RATIO (0.9-2.4); AST(SGOT) 43 U/L (15-37); Alanine Aminotransfer ALT/SGPT 68 U/L (16-61); Albumin, Serum 3.7 g/dL (3.2-5.0); Alkaline Phosphatase 72 U/L (45-117); Anion Gap 6 (5-15); BUN 14 mg/dL (7-18); BUN/Creat Ratio 10.8 RATIO (10-20); Chloride 100 mmol/L (98-107); EST Glomerular Filtration Rate 60 mL/min (>60); Est Glom Filt Rate - Afr Amer 72 mL/min (>60); Globulin 3.5 g/dL (2.2-4.2); Glucose 76 mg/dL (74-106); Protein, Total 7.2 g/dL (6.4-8.2); Sodium Level 137 mmol/L (136-145); Thyroid Stim Hormone (TSH) 2.11 uIU/mL (0.358-3.74)
== END ==
PROVIDERS: PCP Family Medicine Geriatric Medicine; Visit Provider Family Medicine Geriatric Medicine
DX: E23.6 Other disorders of pituitary gland (principal); I10 Essential (primary) hypertension; Z12.5 Encounter for screening for malignant neoplasm of prostate
CPT/HCPCS: 36415; 80053; 84153; 84403; 84443; 85025; G0103

== ENCOUNTER → 2020-10-07 16:05 | Outpatient (CLI) | payer BC, SELFPAY ==
[2020-10-07 17:45] LABS: ALB/GLOB Ratio 1.1 RATIO (0.9-2.4); AST(SGOT) 46 U/L (15-37); Alanine Aminotransfer ALT/SGPT 73 U/L (16-61); Albumin, Serum 3.6 g/dL (3.2-5.0); Alkaline Phosphatase 66 U/L (45-117); Anion Gap 4 (5-15); BUN 15 mg/dL (7-18); BUN/Creat Ratio 12.1 RATIO (10-20); Calcium,Total 8.8 mg/dL (8.5-10.1); Chloride 102 mmol/L (98-107); Creatinine, Serum 1.24 mg/dL (0.70-1.30); EST Glomerular Filtration Rate 63 mL/min (>60); Est Glom Filt Rate - Afr Amer 76 mL/min (>60); Globulin 3.4 g/dL (2.2-4.2); Glucose 88 mg/dL (74-106); Sodium Level 136 mmol/L (136-145)
== END ==
PROVIDERS: PCP Family Medicine Geriatric Medicine; Visit Provider Family Medicine Geriatric Medicine
DX: R74.8 Abnormal levels of other serum enzymes (principal)
CPT/HCPCS: 36415; 80053

== ENCOUNTER → 2020-10-15 08:41 | Outpatient (CLI) | payer BC, SELFPAY ==
--- NOTE | 2020-10-15 08:49 | US_ITS ---
STUDY: ABDOMINAL ULTRASOUND - RIGHT UPPER QUADRANT REASON FOR VISIT: Male, 60 years old ELEVATED LFT''S TECHNIQUE: Ultrasound evaluation of the right upper quadrant was performed with real-time and static ozuna-scale imaging. TECHNICAL QUALITY: Adequate. COMPARISON: None. FINDINGS: Liver: The liver measures 16.3 cm. There is normal echogenicity of the liver. The bile ducts are within normal limits. There is hepatic color flow. The direction of portal flow is hepatopetal. There is no demonstrated mass lesion. Gallbladder: Normal distended gallbladder. The gallbladder wall measures 2 mm. There is a negative sonographic Matamoros''s sign. There is no pericholecystic fluid. There are gallbladder polyps. Common Bile Duct (C.B.D.): The common bile duct measures 6 mm. Pancreas: Normal size of the head, body and tail of the pancreas. There is normal echogenicity of the pancreas. There is no demonstrated pancreatic mass or cyst. Right Kidney: Normal size of the right kidney. The right kidney measures 12.1 cm. Normal renal cortex. The right cortex measures 1.7 cm. There is no demonstrated renal mass or cyst. There is no right hydronephrosis. US/Abdomen Limited IMPRESSION: Cholesterolosis. Electronically Signed: Landen Caputo MD at 10:20 EST Tel , Service support ,
[2020-10-16 05:07] LABS: HEPATITIS B SURFACE AG Negative (Negative); Hepatitis A AB, Total Positive (Negative); Hepatitis A IgM Antibody Negative (Negative); Hepatitis B Core AB IgM Negative (Negative); Hepatitis B Core Ab Total Negative (Negative); Hepatitis C Ab <0.1 s/co ratio (0.0-0.9)
[2020-10-16 09:29] LABS: Hep B Surface Antibodies Non Reactive (.)
== END ==
PROVIDERS: PCP Family Medicine Geriatric Medicine; Referring Provider Family Medicine Geriatric Medicine; Visit Provider Family Medicine Geriatric Medicine
DX: R74.8 Abnormal levels of other serum enzymes (principal)
CPT/HCPCS: 36415; 76705; 80074; 86704; 86705; 86706; 86708; 86709; 86803; 87340

== ENCOUNTER 2020-11-20 13:30 | Emergency (ER) | payer OTHER, SELFPAY ==
[2020-11-20 13:33] VITALS: BP 150/76; PULSE 88; RESP 18; TEMP 36.8; O2SAT 97; BMI 31.1
[2020-11-20 13:45] VITALS: O2SAT 98
--- NOTE | 2020-11-20 13:51 | EKG12_ITS ---
Test Reason : SOB Blood Pressure : / mmHG Vent. Rate : 082 BPM Atrial Rate : 082 BPM P-R Int : 172 ms QRS Dur : 108 ms QT Int : 376 ms P-R-T Axes : 074 078 -06 degrees QTc Int : 439 ms Normal sinus rhythm Nonspecific T wave abnormality Abnormal ECG Confirmed by KESHIA SILVA, CAMILLE ([id number]), market editor SHEILA OBRIEN ([id number]) on 11/22/2020 11:05:07 AM Referred By: REGGIE Confirmed By:CAMILLE SCHMITT MD
--- NOTE | 2020-11-20 13:59 | RAD_ITS ---
STUDY: X-RAY CHEST REASON FOR EXAM: Male, 60 years old. TESTED POSITIVE FOR COVID VALDEZ, BODY ACHES, SORE THROAT, LOSS OF TASTE. TODAY HAD EPISODE OF DIZZINESS, WITH CONTINUED DYSPNEA. TECHNIQUE: Single AP portable view of the chest. COMPARISON: Comparison is made with prior study dated 01/31/2020. FINDINGS: EKG electrodes are seen. The lungs are clear and expanded. There is no demonstrated pleural abnormality. Normal size heart. Normal mediastinum and tashi. Normal visualized pulmonary arteries. Normal visualized aortic arch and descending thoracic aorta. There are diffuse degenerative changes of the visualized thoracic spine. Normal visualized ribs, clavicles, and shoulders. There is no demonstrated abnormality of the visualized soft tissue structures of the upper abdomen. RAD/Chest 1 View (Portable) IMPRESSION: Normal x-ray examination of the chest. Electronically Signed: Jeremi Colon MD at 14:15 EST , Service support ,
[2020-11-20 14:01] LABS: Basophil# 0.02 X10^3/uL; Basophil% 0.4 % (0-1); Eosinophil# 0.03 X10^3/uL; Eosinophils% 0.7 % (0-5); Hematocrit 50.8 % (40-54); Hemoglobin 17.3 g/dL (13.0-16.5); Lymphocyte % 17.5 % (19-41); Mean Corp Hgb Conc 34.1 g/dL (32-36); Mean Corpuscular Hgb 31.8 pg (27.0-32.0); Mean Corpuscular Volume 93.4 fL (80-94); Mean Platelet Vol. 9.7 fl (6.2-12.0); Monocyte# 0.67 X10^3/uL; Monocyte% 14.6 % (0-10); NRBC Flagged by Analyzer 0 % (0-5); Neutrophil # 3.04 X10^3/uL (2.7-7.7); Neutrophil % 66.4 % (47-70); Platelet Count 210 K/mm3 (150-450); RBC Distribution Width CV 13.3 % (11.6-14.6); RBC Distribution Width SD 45.6 fl (35.1-43.9); Red Blood Count 5.44 M/mm3 (4.6-6.2); White Blood Count 4.6 K/mm3 (4.4-11.0)
[2020-11-20 14:21] LABS: Anion Gap 2 (5-15); BUN 12 mg/dL (7-18); BUN/Creat Ratio 8.6 RATIO (10-20); Calcium,Total 8.2 mg/dL (8.5-10.1); Chloride 101 mmol/L (98-107); EST Glomerular Filtration Rate 55 mL/min (>60); Est Glom Filt Rate - Afr Amer 66 mL/min (>60); Estimated Creatinine Clearance 59.01 ml/min; Glucose 92 mg/dL (74-106); Sodium Level 136 mmol/L (136-145)
[2020-11-20 14:32] VITALS: O2SAT 95
--- NOTE | 2020-11-20 14:36 | ED.VISSUMM ---
- ER Visit Summary Date of Service: 11/20/20 Chief Complaint: Shortness of breath History of Present Illness: The patient is a 60 M presenting with shortness of breath. Patient states his symptoms started last Wednesday, 5 days ago. He has had fever, body aches, loss of sense of taste and smell. He was tested for Covid on Wednesday and tested positive. He states a friend also tested positive. He has had fever, rhinorrhea, chest pain with coughing, shortness of breath, productive cough, nausea, myalgias, mild headache. He has a history of hypertension and anxiety. He is not a smoker. Physical Examination: Vitals are stable. Patient is afebrile. Alert no acute distress. Pulse ox 97% on room air HEENT exam is unremarkable. Neck is supple. Lungs are clear and equal bilaterally. Heart is regular rate and rhythm. Abdomen is soft nontender nondistended. Extremities are unremarkable. Skin is warm and dry. No focal neurologic deficit. Remainder of exam is unremarkable. Emergency Department Course and Treatment: EKG is sinus rhythm rate of 82 with no acute ischemic changes. Chest x-ray read by myself and radiology shows no acute process. CBC, chemistries unremarkable other than creatinine 1.4. Troponin is negative. Pulse ox with ambulation is 95% on room air. Patient is feeling improved on reevaluation. He is advised to follow-up with his primary care physician. Advised return to ED for worsening complaints. Disposition: Discharge home Impression: COVID-19 This note was generated with [employer] dictation software. It may contain incorrect words, spelling, and punctuation that were not noted in review of the chart prior to signing ED Disposition - Plan for ED Patient: Instructions: Coronavirus Disease 2019 (COVID-19): Overview Referrals: Gino Aponte Chi, MD [Primary Care Provider] -
--- NOTE | 2020-11-20 15:30 | ED.DEP ---
ED Disposition - Plan for ED Patient: Instructions: Coronavirus Disease 2019 (COVID-19): Overview Referrals: Gino Aponte Chi, MD [Primary Care Provider] -
[2020-11-20 15:44] VITALS: BP 124/83; PULSE 74; RESP 18; O2SAT 97
== END 2020-11-20 15:51 | disposition home or self-care (01) ==
PROVIDERS: Emergency Provider Emergency Medicine; PCP Family Medicine Geriatric Medicine
DX: U07.1 COVID-19 (principal)
CPT/HCPCS: 71045; 80048; 84484; 85025; 93005; 99284; A4216

== ENCOUNTER → 2020-12-11 16:00 | Outpatient (CLI) | payer OTHER, SELFPAY ==
[2020-11-20 13:33] VITALS: BMI 31.1
== END ==
PROVIDERS: PCP Family Medicine Geriatric Medicine; Referring Provider Family Medicine Geriatric Medicine; Visit Provider Family Medicine Geriatric Medicine
DX: R68.83 Chills (without fever) (principal)
CPT/HCPCS: 87633; 87635; C9803; U0003

== ENCOUNTER → 2021-03-26 16:13 | Outpatient (CLI) | payer OTHER, SELFPAY ==
[2021-03-26 16:56] LABS: Absolute Lymphocyte Count 1.27 X10^3/uL (0.83-4.51); Absolute Neutrophil Count 3.7 X10^3/uL (2.0-7.7); Basophil# 0.05 X10^3/uL; Basophil% 0.8 % (0-1); Eosinophil# 0.11 X10^3/uL; Eosinophils% 1.8 % (0-5); Hematocrit 51.7 % (40-54); Hemoglobin 17.3 g/dL (13.0-16.5); Lymphocyte # 1.27 X10^3/ul (0.83-4.51); Lymphocyte % 21.3 % (19-41); Mean Corp Hgb Conc 33.5 g/dL (32-36); Mean Corpuscular Volume 92.7 fL (80-94); Mean Platelet Vol. 9.4 fl (6.2-12.0); Monocyte# 0.81 X10^3/uL; Monocyte% 13.6 % (0-10); NRBC Flagged by Analyzer 0 % (0-5); Neutrophil # 3.69 X10^3/uL (2.7-7.7); Platelet Count 245 K/mm3 (150-450); RBC Distribution Width CV 13.4 % (11.6-14.6); RBC Distribution Width SD 46.4 fl (35.1-43.9); Red Blood Count 5.58 M/mm3 (4.6-6.2)
[2021-03-26 17:38] LABS: AST(SGOT) 34 U/L (15-37); Alanine Aminotransfer ALT/SGPT 54 U/L (16-61); Albumin, Serum 3.4 g/dL (3.2-5.0); Alkaline Phosphatase 82 U/L (45-117); Anion Gap 6 (5-15); BUN 13 mg/dL (7-18); BUN/Creat Ratio 9.8 RATIO (10-20); Calcium,Total 8.5 mg/dL (8.5-10.1); Chloride 102 mmol/L (98-107); Creatinine, Serum 1.32 mg/dL (0.70-1.30); EST Glomerular Filtration Rate 58 mL/min (>60); Est Glom Filt Rate - Afr Amer 71 mL/min (>60); Globulin 3.5 g/dL (2.2-4.2); Glucose 83 mg/dL (74-106); Protein, Total 6.9 g/dL (6.4-8.2); Sodium Level 137 mmol/L (136-145); Thyroid Stim Hormone (TSH) 1.86 uIU/mL (0.358-3.74)
== END ==
PROVIDERS: PCP Family Medicine Geriatric Medicine; Visit Provider Family Medicine Geriatric Medicine
DX: F52.8 Other sexual dysfunction not due to a substance or known physiological condition (principal); I10 Essential (primary) hypertension
CPT/HCPCS: 36415; 80053; 84403; 84443; 85025

== ENCOUNTER → 2021-05-07 16:43 | Outpatient (CLI) | payer OTHER, SELFPAY ==
[2021-05-07 18:12] LABS: CRP < 2.90 mg/L (0.0-3.0)
[2021-05-09 16:08] LABS: Endomysial Antibody IgA Negative (Negative)
[2021-05-09 22:31] LABS: Immunoglobulin A 185 mg/dL (61-437); t-Transglutaminase IgA <2 U/mL (0-3)
== END ==
PROVIDERS: PCP Family Medicine Geriatric Medicine; Referring Provider Internal Medicine Gastroenterology; Visit Provider Internal Medicine Gastroenterology
DX: Z11.59 Encounter for screening for other viral diseases (principal)
CPT/HCPCS: 36415; 82784; 83516; 86140; 86255

== ENCOUNTER → 2021-09-29 15:48 | Outpatient (CLI) | payer OTHER, SELFPAY ==
[2021-09-29 18:38] LABS: Absolute Lymphocyte Count 1.33 X10^3/uL (0.83-4.51); Absolute Neutrophil Count 3.6 X10^3/uL (2.0-7.7); Basophil# 0.06 X10^3/uL; Eosinophil# 0.12 X10^3/uL; Hematocrit 52.4 % (40-54); Hemoglobin 17.6 g/dL (13.0-16.5); Lymphocyte # 1.33 X10^3/ul (0.83-4.51); Lymphocyte % 22.5 % (19-41); Mean Corp Hgb Conc 33.6 g/dL (32-36); Mean Corpuscular Volume 98.3 fL (80-94); Mean Platelet Vol. 10.1 fl (6.2-12.0); Monocyte# 0.82 X10^3/uL; Monocyte% 13.9 % (0-10); NRBC Flagged by Analyzer 0 % (0-5); Neutrophil # 3.56 X10^3/uL (2.7-7.7); Neutrophil % 60.3 % (47-70); Platelet Count 269 K/mm3 (150-450); RBC Distribution Width CV 13.4 % (11.6-14.6); RBC Distribution Width SD 48.9 fl (35.1-43.9); Red Blood Count 5.33 M/mm3 (4.6-6.2); White Blood Count 5.9 K/mm3 (4.4-11.0)
[2021-09-29 19:03] LABS: AST(SGOT) 51 U/L (15-37); Alanine Aminotransfer ALT/SGPT 63 U/L (16-61); Albumin, Serum 3.6 g/dL (3.2-5.0); Alkaline Phosphatase 76 U/L (45-117); Anion Gap 3 (5-15); BUN 16 mg/dL (7-18); Calcium,Total 9.3 mg/dL (8.5-10.1); Chloride 101 mmol/L (98-107); Creatinine, Serum 1.33 mg/dL (0.70-1.30); EST Glomerular Filtration Rate 58 mL/min (>60); Est Glom Filt Rate - Afr Amer 70 mL/min (>60); Globulin 3.7 g/dL (2.2-4.2); Glucose 131 mg/dL (74-106); PSA,Total - Annual Screen 1.18 ng/mL (0.00-4.00); Protein, Total 7.3 g/dL (6.4-8.2); Sodium Level 137 mmol/L (136-145); Thyroid Stim Hormone (TSH) 1.31 uIU/mL (0.358-3.74)
== END ==
PROVIDERS: PCP Family Medicine Geriatric Medicine; Visit Provider Family Medicine Geriatric Medicine
DX: F52.8 Other sexual dysfunction not due to a substance or known physiological condition (principal); I10 Essential (primary) hypertension; Z12.5 Encounter for screening for malignant neoplasm of prostate
CPT/HCPCS: 36415; 80053; 84153; 84403; 84443; 85025; G0103

== ENCOUNTER → 2022-03-30 | Outpatient (CLI) | payer BC, SELFPAY ==
[2022-03-30 16:33] LABS: Absolute Neutrophil Count 2.6 X10^3/uL (2.0-7.7); Basophil# 0.02 X10^3/uL; Basophil% 0.4 % (0-1); Eosinophil# 0.12 X10^3/uL; Eosinophils% 2.5 % (0-5); Hemoglobin 15.4 g/dL (13.0-16.5); Lymphocyte % 25.3 % (19-41); Mean Corp Hgb Conc 34.2 g/dL (32-36); Mean Corpuscular Hgb 32.4 pg (27.0-32.0); Mean Corpuscular Volume 94.7 fL (80-94); Monocyte# 0.77 X10^3/uL; Monocyte% 16.2 % (0-10); NRBC Flagged by Analyzer 0 % (0-5); Neutrophil # 2.62 X10^3/uL (2.7-7.7); Neutrophil % 55.2 % (47-70); Platelet Count 234 K/mm3 (150-450); RBC Distribution Width CV 13.2 % (11.6-14.6); RBC Distribution Width SD 46.2 fl (35.1-43.9); Red Blood Count 4.75 M/mm3 (4.6-6.2); White Blood Count 4.8 K/mm3 (4.4-11.0)
[2022-03-30 17:02] LABS: AST(SGOT) 60 U/L (15-37); Alanine Aminotransfer ALT/SGPT 93 U/L (16-61); Albumin, Serum 3.5 g/dL (3.2-5.0); Alkaline Phosphatase 79 U/L (45-117); Anion Gap 6 (5-15); BUN 18 mg/dL (7-18); BUN/Creat Ratio 14.8 RATIO (10-20); Calcium,Total 8.6 mg/dL (8.5-10.1); Chloride 104 mmol/L (98-107); Cholesterol 246 mg/dL (200); Creatinine, Serum 1.22 mg/dL (0.70-1.30); EST Glomerular Filtration Rate 64 mL/min (>60); Est Glom Filt Rate - Afr Amer 77 mL/min (>60); Globulin 3.5 g/dL (2.2-4.2); Glucose 117 mg/dL (74-106); High Density Lipoprotein 30 mg/dL; Potassium 3.8 mmol/L (3.5-5.1); Sodium Level 138 mmol/L (136-145); Thyroid Stim Hormone (TSH) 1.16 uIU/mL (0.358-3.74); Triglycerides 165 mg/dL; Very Low Density Lipoprotein 33 mg/dL (5-40)
== END | disposition home or self-care (01) ==
PROVIDERS: PCP Family Medicine Geriatric Medicine; Visit Provider Family Medicine Geriatric Medicine
DX: F52.8 Other sexual dysfunction not due to a substance or known physiological condition (principal); I10 Essential (primary) hypertension
CPT/HCPCS: 36415; 80053; 80061; 84403; 84443; 85025

== ENCOUNTER → 2022-09-30 | Outpatient (CLI) | payer BC, SELFPAY ==
[2022-09-30 17:17] LABS: Absolute Lymphocyte Count 1.45 X10^3/uL (0.83-4.51); Absolute Neutrophil Count 2.4 X10^3/uL (2.0-7.7); Basophil# 0.05 X10^3/uL; Eosinophil# 0.18 X10^3/uL; Eosinophils% 3.6 % (0-5); Hematocrit 47.2 % (40-54); Hemoglobin 15.5 g/dL (13.0-16.5); Lymphocyte # 1.45 X10^3/ul (0.83-4.51); Lymphocyte % 28.9 % (19-41); Mean Corp Hgb Conc 32.8 g/dL (32-36); Mean Corpuscular Hgb 31.6 pg (27.0-32.0); Mean Corpuscular Volume 96.3 fL (80-94); Mean Platelet Vol. 9.9 fl (6.2-12.0); Monocyte# 0.94 X10^3/uL; Monocyte% 18.8 % (0-10); NRBC Flagged by Analyzer 0 % (0-5); Neutrophil # 2.37 X10^3/uL (2.7-7.7); Neutrophil % 47.3 % (47-70); Platelet Count 272 K/mm3 (150-450); RBC Distribution Width SD 46.5 fl (35.1-43.9)
[2022-09-30 17:49] LABS: ALB/GLOB Ratio 0.9 RATIO (0.9-2.4); AST(SGOT) 44 U/L (15-37); Alanine Aminotransfer ALT/SGPT 69 U/L (16-61); Albumin, Serum 3.5 g/dL (3.2-5.0); Alkaline Phosphatase 87 U/L (45-117); Anion Gap 9 (5-15); BUN 23 mg/dL (7-18); BUN/Creat Ratio 17.8 RATIO (10-20); Calcium,Total 9.4 mg/dL (8.5-10.1); Chloride 102 mmol/L (98-107); Creatinine, Serum 1.29 mg/dL (0.70-1.30); EST Glomerular Filtration Rate 60 mL/min (>60); Est Glom Filt Rate - Afr Amer 72 mL/min (>60); Globulin 3.7 g/dL (2.2-4.2); Glucose 94 mg/dL (74-106); PSA,Total - Annual Screen 3.21 ng/mL (0.00-4.00); Potassium 4.2 mmol/L (3.5-5.1); Protein, Total 7.2 g/dL (6.4-8.2); Sodium Level 139 mmol/L (136-145); Thyroid Stim Hormone (TSH) 1.62 uIU/mL (0.358-3.74)
[2022-09-30 17:50] LABS: Vitamin D,25 Hydroxy 17.2 ng/mL
== END | disposition home or self-care (01) ==
LOC: POLAB3 15:55
PROVIDERS: PCP Family Medicine Geriatric Medicine; Visit Provider Family Medicine Geriatric Medicine
DX: I10 Essential (primary) hypertension (principal); F52.8 Other sexual dysfunction not due to a substance or known physiological condition; Z12.5 Encounter for screening for malignant neoplasm of prostate
CPT/HCPCS: 36415; 80053; 82306; 84153; 84403; 84443; 85025; G0103

== ENCOUNTER → 2023-04-13 | Outpatient (CLI) | payer BC, SELFPAY ==
[2023-04-13 16:50] LABS: Absolute Lymphocyte Count 1.53 X10^3/uL (0.83-4.51); Absolute Neutrophil Count 3.5 X10^3/uL (2.0-7.7); Basophil# 0.05 X10^3/uL; Basophil% 0.8 % (0-1); Eosinophil# 0.11 X10^3/uL; Eosinophils% 1.8 % (0-5); Hematocrit 46.5 % (40-54); Hemoglobin 15.6 g/dL (13.0-16.5); Lymphocyte # 1.53 X10^3/ul (0.83-4.51); Mean Corp Hgb Conc 33.5 g/dL (32-36); Mean Corpuscular Hgb 32.2 pg (27.0-32.0); Mean Corpuscular Volume 96.1 fL (80-94); Mean Platelet Vol. 9.4 fl (6.2-12.0); Monocyte# 0.89 X10^3/uL; Monocyte% 14.5 % (0-10); NRBC Flagged by Analyzer 0 % (0-5); Neutrophil # 3.52 X10^3/uL (2.7-7.7); Neutrophil % 57.6 % (47-70); Platelet Count 244 K/mm3 (150-450); RBC Distribution Width CV 13.4 % (11.6-14.6); RBC Distribution Width SD 47.8 fl (35.1-43.9); Red Blood Count 4.84 M/mm3 (4.6-6.2); White Blood Count 6.1 K/mm3 (4.4-11.0)
[2023-04-13 17:21] LABS: ALB/GLOB Ratio 0.9 RATIO (0.9-2.4); AST(SGOT) 31 U/L (15-37); Alanine Aminotransfer ALT/SGPT 51 U/L (16-61); Albumin, Serum 3.6 g/dL (3.2-5.0); Alkaline Phosphatase 65 U/L (45-117); Anion Gap 6 (5-15); BUN 14 mg/dL (7-18); BUN/Creat Ratio 11.8 RATIO (10-20); Calcium,Total 9.1 mg/dL (8.5-10.1); Chloride 101 mmol/L (98-107); Creatinine, Serum 1.19 mg/dL (0.70-1.30); EST Glomerular Filtration Rate 65 mL/min (>60); Est Glom Filt Rate - Afr Amer 79 mL/min (>60); Globulin 3.8 g/dL (2.2-4.2); Glucose 97 mg/dL (74-106); Potassium 3.7 mmol/L (3.5-5.1); Protein, Total 7.4 g/dL (6.4-8.2); Sodium Level 136 mmol/L (136-145); Thyroid Stim Hormone (TSH) 1.42 uIU/mL (0.358-3.74)
== END | disposition home or self-care (01) ==
LOC: LAB 15:43
PROVIDERS: PCP Family Medicine Geriatric Medicine; Referring Provider Family Medicine Geriatric Medicine; Visit Provider Family Medicine Geriatric Medicine
DX: I10 Essential (primary) hypertension (principal)
CPT/HCPCS: 36415; 80053; 84443; 85025

== ENCOUNTER → 2023-06-28 | Outpatient (CLI) | payer BC, SELFPAY ==
[2023-06-28 20:47] LABS: M R Staph aureus DNA By PCR Negative (Negative); Probe Check PASS; Specimen Processing Control PASS; Staph aureus DNA By PCR NEGATIVE (Negative)
== END | disposition home or self-care (01) ==
LOC: POLAB3 16:41
PROVIDERS: PCP Family Medicine Geriatric Medicine; Visit Provider Family Medicine Geriatric Medicine
DX: L03.116 Cellulitis of left lower limb (principal); S81.802A Unspecified open wound, left lower leg, initial encounter
CPT/HCPCS: 87070; 87205; 87640

== ENCOUNTER → 2023-06-29 | Outpatient (CLI) | payer BC, SELFPAY ==
--- NOTE | 2023-06-29 15:16 | VDLE_ITS ---
Reason For Study: edema Procedure LEFT This is a venous duplex using B-mode, color GSV is normal. flow and spectral Doppler. CFV is compressible, spontaneous, phasic, Exam performed in department. competent, and demonstrates normal The exam was abbreviated due to the COVID 19 augmentation. protocol. FV is compressible, spontaneous, phasic, The exam was diagnostic. competent and demonstrates normal A preliminary report was called and/or faxed augmentation. to Dr. Aponte. POP V is compressible, spontaneous, phasic, competent and demonstrates normal augmentation. T/P Trunk is compressible. PTV is compressible. LT PerV is compressible. VL/Venous Duplex US, Unilateral Interpretation Summary Deep veins of the left lower extremity are patent and compressible segmentally. There is no evidence of left lower extremity deep vein thrombosis. The left great saphenous vein louis ears patent and compressible segmentally. Ordering Physician: Gino Aponte Chi Performed By: Ronan Ron RVT
== END | disposition home or self-care (01) ==
LOC: CVS 15:14
PROVIDERS: PCP Family Medicine Geriatric Medicine; Referring Provider Family Medicine Geriatric Medicine; Visit Provider Family Medicine Geriatric Medicine
DX: R60.9 Edema, unspecified (principal)
CPT/HCPCS: 93971

== ENCOUNTER 2023-08-18 12:30 | Outpatient (RCR) | payer BC, SELFPAY ==
[2023-08-11 14:59] VITALS: BP 156/84; PULSE 78; RESP 18; TEMP 36.8
--- NOTE | 2023-08-11 16:35 | PCM.WC.HP ---
History of Present Illness Date of Service: 08/11/23 Chief Complaint: Right leg laceration History of Wound: Right leg laceration for 1 month Progress of Wound: Mr. Corral is a 63-year-old male presenting to the [facility] wound care center for follow-up and evaluation to left leg laceration after getting pinned between a trailer and his truck. Patient was seen by his primary care doctor who cultured his wound and put the patient through 2 rounds of antibiotics. Patient has failed oral antibiotics and is referred to the wound care center for second opinion. Patient denies any trauma except stated above. He denies constitutional symptoms. No other pedal complaints at this time. [facility] Home Medications lorazepam 1 mg tablet 0.5 mg PO BID PRN PRN Anxiety 08/14/18 [History Last Taken 11/20/20] pregabalin 75 mg capsule 75 mg PO BID NERVE PAIN 08/14/18 [History Last Taken 11/20/20] baclofen 10 mg tablet 10 mg PO QHS PRN Spasms 11/20/20 [History Last Taken Unknown] doxepin 100 mg capsule 100 mg PO QHS NERVE PAIN 11/20/20 [History Last Taken 11/19/20] doxepin 150 mg capsule 150 mg PO QHS NERVE PAIN 11/20/20 [History Last Taken 11/19/20] olmesartan 40 mg tablet 40 mg PO DAILY BP 11/20/20 [History Last Taken 11/20/20] Allergy/AdvReac Type Severity Reaction Status Date / Time prednisone AdvReac Mild Other Verified 08/11/23 15:15 Social History Smoking Status: Current some day smoker Vital Signs Vital Signs Vital Signs: 08/11/23 14:59 Temperature 98.2 F Temperature Source Temporal Pulse Rate 78 Respiratory Rate 18 Blood Pressure 156/84 H Blood Pressure Mean 108 Blood Pressure Source Monitor Blood Pressure Position Sitting Blood Pressure Location Left Arm Oxygen Delivery Method Room Air Physical Exam Narrative Vascular: DP and PT pulses are palpable to left lower extremity. CFT is brisk. Skin temperature great is warm to warm. There is no focal increase appreciated. Nonpitting edema appreciated to left lower extremity. Neurological: Light touch and epicritic station is intact. Patient did not respond to painful stimuli. Dermatological: Full-thickness ulceration appreciated to the lateral aspect of the left leg. Ulceration measures 0.3 x 0.3 x 7 cm. The wound is circumferential. Evidence of foreign body removal after flushing the wound. The wound shows evidence of separation of fascial planes between the subcutaneous tissue and muscle fascia which was probed with culture swabs. Muscle skeletal: No pain on palpation to full-thickness ulceration. No pain while expression of sterile saline fluid. No pain with calf compression. Const alert, oriented x3 and no apparent distress Debridement Note Debridement Note Debridement Free Text: Excisional debridement down to and including subcutaneous tissue fascia and muscle with a 5 mm dermal curette without incident. Predebridement measurement is eschar. Postdebridement measurement is 0.3 x 0.3 x 7 cm. Wound is circumferentially probing between the subcutaneous layer and muscle fascia. Post-Debridement Measurements and Additional Note: Post-Debridement Measurements/Treatment WC - Nurse 1 - General Ulcer Assessment Start: 08/11/23 14:59 Freq: Status: Active Protocol: ANNETTE Activity Type Activity Date Activity User E-sign Co-sign Detail Recorded Client Recorded Date Recorded By Document 08/11/23 14:59 KW Desktop 08/11/23 15:10 KW 08/11/23 14:59 - Today's Visit Information Type of service Initial Visit Arrival Mode Ambulatory Patient Identification Verified (Name & Yes ) Vital Signs Temperature (97.8 F-99.1 F) 98.2 F Temperature Source Temporal Pulse Rate (60-100) 78 Pulse Location Monitor Respiratory Rate (12-18) 18 Respiratory rate source Observation Oxygen Delivery Method Room Air Blood Pressure (90/60-120/80) 156/84 H Blood Pressure Mean 108 Source Monitor Position Sitting Blood Pressure Location Left Arm History Since Last Visit- (Skip if this is Patient's initial visit) Left Footwear Regular Shoe Right Footwear Regular Shoe Pain Scale: 0-10 Numeric Is Patient Pain Free? Yes Lower Extremity Assessment/ Foot Assessment/ Toe Nail Assessment Right -Posterior Tibial Doppler Monophasic -Dorsalis Pedis Doppler Monophasic -Hair Growth on Legs Yes -Hair Growth on Toes Yes -Temperature of Extremity Warm -Capillary Refill Less than 3 Seconds -Other Deformity No -Prior Foot Ulcer No -Charcot Joint No -Prior Amputation No -Thick No -Discolored No -Deformed No -Improper Length & Hygeine No Left -Posterior Tibial Doppler Monophasic -Dorsalis Pedis Doppler Monophasic -Hair Growth on Legs Yes -Hair Growth on Toes Yes -Temperature of Extremity Warm -Capillary Refill Less than 3 Seconds -Other Deformity No -Prior Foot Ulcer No -Charcot Joint No -Prior Amputation No -Thick No -Discolored No -Deformed No -Improper Length & Hygeine No Neuropathy Assessment Feet - Top Side and Bottom <Entered> (a) Communication Assessment Preferred language [place] Able to Read Yes Able to Write Yes Communication Tools None Caregiver Communication Skills No Impairment Impairment Right Hearing Abillity Hard of Hearing Left Hearing Abillity Hard of Hearing Visual Assistive Devices None Teaching Assessment Preferences Verbal,Written, Demonstration Barriers to Learning None Readiness To Learn Excellent Willingness to Engage in Self Management High Activies Readiness to Engage in Self Management High Activities Anxiety Level Calm Cooperation Cooperative Perception Coherent Interest in Health Problem Asks Questions Education Importance Acknowledges Need Does Patient Smoke tobacco or other Yes substances Smoking Status Current some day smoker Is Patient Diabetic No Functional Assessment Recent Decline in Ability to Perform Denies Any Declines Assistive Device With Patient No Culture/Scientologist/Icebox Worker Cultural/Scientologist Needs that may affect No Treatment Plan Would you allow our hospital filtration plant operator to No meet you for the purpose of spiritual/ emotional support? Icebox Worker to contact place of scientologist No Teaching: Wound Center Welcome to the Wound Care Center [place] (a) 1 - + WC - Nurse 1 - General Ulcer Measurement Start: 08/11/23 14:59 Freq: Status: Active Protocol: Activity Type Activity Date Activity User E-sign Co-sign Detail Recorded Client Recorded Date Recorded By Document 08/11/23 14:59 KW Desktop 08/11/23 15:10 KW 08/11/23 14:59 Wound Center Nurse 1 #1 LT LAT LEG -Current Size (cm) - Length 1.1 -Current Size (cm) - Width 0.6 -Current Size (cm) - Depth 0.1 -Total Square Cm 0.66 -Date of Last Picture (Recall this 08/11/23 field) -Exudate Amt None Present -Wound Margin Distinct, Outline Attached -Texture (Maddy-wound Skin Appearance) Assessed -Moisture (Maddy-wound Skin Appearance) Assessed -Color (Maddy-wound Skin Appearance) Assessed -Temperature (Maddy-wound Skin No Abnormality Appearance) (Pt Warm) -Ulcer Cleansing Soap and Water -Foul Odor after Cleansing No -Anesthetic Used 5% Lidocaine Gel -Wound Comment(s) SCABBED RED AROUND AREA Right Calf (cm) 40.4 Right Ankle (cm) 22.1 Left Calf (cm) 40 Left Ankle (cm) 22.1 WC - Nurse 2 - General Ulcer CM Notes Start: 08/11/23 14:59 Freq: Status: Active Protocol: Activity Type Activity Date Activity User E-sign Co-sign Detail Recorded Client Recorded Date Recorded By Document 08/11/23 15:32 Laptop 08/11/23 15:34 08/11/23 15:32 Wound Center Nurse 2 #1 LT LAT LEG -Time 15:33 -Correct Patient Yes -Correct Side, Site, Position Yes -Correct Procedure Yes -Procedure Performed Yes -Type of Procedure Debridement -Clinical Debridement Subcutaneous -Tissue Removed Subcutaneous -Post Debridement (cm) - Length 1.0 -Post Debridement (cm) - Width 0.5 -Post Debridement (cm) - Depth 1.0 -Total Square (Post) (cm) 0.50 -Area of Debridement (cm) - Length 1.0 -Area of Debridement (cm) - Width 0.5 -Total Square (Area) (cm) 0.50 -Circular Undermining Yes -Wound/Ulcer Outcome Not Healed -Ulcer Cleansing Rinsed/ Irrigated with Saline -Foul Odor after Cleansing No -Bioengineered Tissue No -Bleeding Controlled with Pressure -Treatment Response Procedure Tolerated Well -Offloading No -Debridement - Subq, 1st 20sq cm Yes Pain Scale: 0-10 Numeric Is Patient Pain Free? Yes - Nurse 3 - General Ulcer D/C NN Start: 08/11/23 14:59 Freq: Status: Active Protocol: Activity Type Activity Date Activity User E-sign Co-sign Detail Recorded Client Recorded Date Recorded By Document 08/11/23 15:43 GM Desktop 08/11/23 15:48 GM 08/11/23 15:43 Wound Care Center Nurse 3 #1 LT LAT LEG -Ulcer Cleansing Not Cleansed -Foul Odor after Cleansing No -Primary Dressing Covered/Secured with Dry Gauze, Secured with Tape Pain Scale: 0-10 Numeric Is Patient Pain Free? 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 All findings were discussed with the patient. All questions were answered to the patient's satisfaction. Excisional debridement down to and including subcutaneous tissue fascia and muscle with a 5 mm dermal curette without incident. Predebridement measurement is eschar. Postdebridement measurement is 0.3 x 0.3 x 7 cm. Wound is circumferentially probing between the subcutaneous layer and muscle fascia. Culture was taken from the deep leg after flushing the ulceration with 40 mL of normal sterile saline. No antibiotics will be dispensed at this time until cultures and sensitivity returns. Educated the patient that if his legs becomes more erythematous or has concerns of worsening infection he is to present to the [place] emergency department for admission and IV antibiotics and surgical intervention by Dr. Reis. Patient was understanding of this. The patient's ulceration was dressed with Betadine paint dry sterile dressing and a single layer Tubigrip was applied. Patient to take [id number] Motrin or Tylenol as needed for pain. Follow-up in 1 week. (2) Pain in left leg: CODE(S): M79.605 - Pain in left leg
--- NOTE | 2023-08-16 14:56 | ART_ITS ---
Reason For Study: LLE Wound Procedure A bilateral lower extremity continuous wave Doppler with analog waveform analysis,segmental pressures,and ankle brachial indexes without exercise. Left Segmental Pressures Left brachial= 146mmHg. Left posterior tibial artery = 174mmHg. Left dorsalis pedis artery = 176mmHg. Left digit = 119 mmHg. The left posterior tibial artery waveforms are triphasic. The left dorsalis pedis waveforms are triphasic. Right Segmental Pressures Right brachial= 143mmHg. Right posterior tibial artery = 170mmHg. Right dorsalis pedis artery = 175mmHg. Right digit = 118 mmHg. The right posterior tibial artery waveforms are triphasic. The right dorsalis pedis waveforms are triphasic. Indices The right ankle brachial index by the posterior tibial artery is 1.16. The right ankle brachial index by the dorsalis pedis is 1.20. The right digital-brachial index is 0.81. The left ankle brachial index by the posterior tibial artery is 1.19. The left ankle brachial index by the dorsalis pedis is 1.21. The left digital-brachial index is 0.82. VL/Lower Ext Art Exam w/o Exercis Interpretation Summary Triphasic Doppler waveforms are noted at ankle level bilaterally. Pulse-volume recordings appear satisfactory at all levels bilaterally. Resting ankle-brachial indices are norm al bilaterally. Digital-brachial indices are normal bilaterally. There is no evidence of significant arterial occlusive disease in the lower ext remities bilaterally. Ordering Physician: Hung Reis Referring Physician: Gino Aponte Chi Performed By: Joel Stephens RVT
--- NOTE | 2023-08-16 15:25 | RAD_ITS ---
STUDY: X-RAY - LEFT TIBIA AND FIBULA REASON FOR EXAM: Male, 63 years old. LEG ULCER TECHNIQUE: 2 view(s) of the tibia and fibula were obtained. COMPARISON: None. FINDINGS: Normal visualized tibia. Normal visualized fibula. Small radiolucency within the lateral soft tissues of the mid calf may represent a known ulcer. No bone destruction to suggest osteomyelitis. RAD/Tibia & Fibula 2 Views IMPRESSION: Normal x-ray examination of the tibia and fibula. Possible ulcer of the lateral aspect of the mid calf. Electronically Signed: Landen Caputo MD at 8:54 EDT ,
[2023-08-18 12:18] VITALS: BP 141/76; PULSE 76; RESP 16; TEMP 36.4
--- NOTE | 2023-08-18 13:07 | PCM.WC.PN ---
History of Present Illness Date of Service: 08/18/23 Chief Complaint: Right leg laceration History of Wound: Right leg laceration for 1 month Progress of Wound: Mr. Corral is a 63-year-old male presenting to the [facility] wound care center for follow-up and evaluation to left leg laceration after getting pinned between a trailer and his truck. Patient was seen by his primary care doctor who cultured his wound and put the patient through 2 rounds of antibiotics. Patient has failed oral antibiotics and is referred to the wound care center for second opinion. Patient denies any trauma except stated above. He denies constitutional symptoms. No other pedal complaints at this time. Subjective Subjective Mr. Corral is a 63-year-old male presenting to the [facility] wound care center for follow-up and evaluation to left leg laceration after getting pinned between a trailer and his truck. Patient was seen by his primary care doctor who cultured his wound and put the patient through 2 rounds of antibiotics. Patient has failed oral antibiotics and is referred to the wound care center for second opinion. He also presents for follow-up of wound cultures today patient denies any trauma except stated above. He denies constitutional symptoms. No other pedal complaints at this time. Objective Data Objective Data Vital Signs: Vital Signs Temp Pulse Resp BP O2 Del Method 97.6 F L 76 16 141/76 H Room Air 08/18/23 12:18 08/18/23 12:18 08/18/23 12:18 08/18/23 12:18 08/18/23 12:18 Oxygen Delivery Method Room Air Lab / Micro Data Micro: Microbiology 08/11/23 15:26 Wound - Leg, Left Gram Stain - Final 08/11/23 15:26 Wound - Leg, Left Wound Culture - Final Staphylococcus epidermidis 08/11/23 15:26 Wound - Leg, Left Anaerobic Culture - Final Anaerobic cocci Physical Exam Narrative Vascular: DP and PT pulses are palpable to left lower extremity. CFT is brisk. Skin temperature great is warm to warm. There is no focal increase appreciated. Nonpitting edema appreciated to left lower extremity. Neurological: Light touch and epicritic station is intact. Patient did not respond to painful stimuli. Dermatological: Full-thickness ulceration appreciated to the lateral aspect of the left leg. Ulceration measures 1.0 x 0.4 x 0.5 cm. The still wound shows evidence of separation of fascial planes between the subcutaneous tissue and muscle fascia which was probed with culture swabs. Excisional debridement of the full-thickness ulceration to the left leg with a number 3 mm dermal curette without incident. Predebridement measurement was 0.8 x 0.3 x 0.3 cm. Postdebridement measurement is 1.0 x 0.4 x 0.5 cm. Muscle skeletal: No pain on palpation to full-thickness ulceration. No pain while expression of sterile saline fluid. No pain with calf compression Debridement Note Debridement Note Debridement Free Text: Excisional debridement of the full-thickness ulceration to the left leg with a number 3 mm dermal curette without incident. Predebridement measurement was 0.8 x 0.3 x 0.3 cm. Postdebridement measurement is 1.0 x 0.4 x 0.5 cm. 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 ) Arrival Mode Ambulatory Ambulatory Transfer Assistance None Patient Identification Verified (Name & Yes Yes ) Patient Requires Transmission-Based No Precautions Vital Signs Temperature (97.8 F-99.1 F) 98.2 F 97.6 F L Temperature Source Temporal Temporal Pulse Rate (60-100) 78 76 Pulse Location Monitor Monitor Respiratory Rate (12-18) 18 16 Respiratory rate source Observation Observation Oxygen Delivery Method Room Air Room Air Blood Pressure (90/60-120/80) 156/84 H 141/76 H Blood Pressure Mean (mm Hg) 108 97 Source Monitor Monitor Position Sitting Sitting Blood Pressure Location Left Arm Left Arm History Since Last Visit- (Skip if this is Patient's initial visit) Have you changed medications since your No last visit? Any new allergies or adverse reactions No Had a fall/change in ADL's that may No increase risk of falls Signs or symptoms of abuse and/or No neglect since last visit Have you been in the hospital since your No last visit? Has dressing in place as prescribed Yes Has compression in place as prescribed Yes Has offloadiing in place as prescribed N/A Experienced any changes in pain level or No management Left Footwear Regular Shoe Regular Shoe Right Footwear Regular Shoe Regular Shoe Pain Scale: 0-10 Numeric Is Patient Pain Free? Yes Yes Lower Extremity Assessment/ Foot Assessment/ Toe Nail Assessment Right -Posterior Tibial Doppler Monophasic -Dorsalis Pedis Doppler Monophasic -Hair Growth on Legs Yes -Hair Growth on Toes Yes -Temperature of Extremity Warm -Capillary Refill Less than 3 Seconds -Other Deformity No -Prior Foot Ulcer No -Charcot Joint No -Prior Amputation No -Thick No -Discolored No -Deformed No -Improper Length & Hygeine No Left -Posterior Tibial Doppler Monophasic -Dorsalis Pedis Doppler Monophasic -Hair Growth on Legs Yes -Hair Growth on Toes Yes -Temperature of Extremity Warm -Capillary Refill Less than 3 Seconds -Other Deformity No -Prior Foot Ulcer No -Charcot Joint No -Prior Amputation No -Thick No -Discolored No -Deformed No -Improper Length & Hygeine No Neuropathy Assessment Feet - Top Side and Bottom <Entered> (a) Communication Assessment Preferred language Danish Able to Read Yes Able to Write Yes Communication Tools None Caregiver Communication Skills No Impairment Impairment Right Hearing Abillity Hard of Hearing Left Hearing Abillity Hard of Hearing Visual Assistive Devices None Teaching Assessment Preferences Verbal,Written, Demonstration Barriers to Learning None Readiness To Learn Excellent Willingness to Engage in Self Management High Activies Readiness to Engage in Self Management High Activities Anxiety Level Calm Cooperation Cooperative Perception Coherent Interest in Health Problem Asks Questions Education Importance Acknowledges Need Does Patient Smoke tobacco or other Yes substances Smoking Status Current some day smoker Is Patient Diabetic No Functional Assessment Recent Decline in Ability to Perform Denies Any Declines Assistive Device With Patient No Culture/Moravian/Income Auditor Cultural/Moravian Needs that may affect No Treatment Plan Would you allow our hospital manager business operations to No meet you for the purpose of spiritual/ emotional support? Income Auditor to contact place of yazidism No Teaching: Wound Center Welcome to the Wound Care Center Danish (a) 1 - + WC - Nurse 1 - General Ulcer Measurement Start: 08/11/23 14:59 Freq: Status: Active Protocol: Activity Type Activity Date Activity User E-sign Co-sign Detail Recorded Client Recorded Date Recorded By Document 08/11/23 14:59 KW Desktop 08/11/23 15:10 KW Document 08/18/23 12:18 [facility] Desktop 08/18/23 12:24 [facility] 08/11/23 08/18/23 14:59 12:18 Wound Center Nurse 1 #1 LT LAT LEG -Combined with other wound No -Current Size (cm) - Length 1.1 0.4 -Current Size (cm) - Width 0.6 0.3 -Current Size (cm) - Depth 0.1 0.3 -Total Square Cm 0.66 0.12 -Date of Last Picture (Recall this 08/11/23 field) -Photo Taken No -Epithelialization Small 1-33% -Tunneling No -Undermining/Tunneling No -Circular Undermining No -Exudate Amt None Present Medium -Exudate Type Serosanguineous -Wound Margin Distinct, Distinct, Outline Outline Attached Attached -Granulation Amt Large (67-100%) -Granulation Quality Red -Slough/Fibrin No -Necrosis Amt None Present (0 %) -Texture (Maddy-wound Skin Appearance) Assessed Assessed, Scarring -Moisture (Maddy-wound Skin Appearance) Assessed Assessed, Maceration -Color (Maddy-wound Skin Appearance) Assessed Assessed -Temperature (Maddy-wound Skin No Abnormality No Abnormality Appearance) (Pt Warm) (Pt Warm) -Tenderness on Palpation (Maddy-wound No Skin Appearance) -Ulcer Cleansing Soap and Water Rinsed/ Irrigated with Saline -Foul Odor after Cleansing No No -Anesthetic Used 5% Lidocaine 5% Lidocaine Gel Gel -Wound Comment(s) SCABBED RED AROUND AREA Right Calf (cm) 40.4 Right Ankle (cm) 22.1 Left Calf (cm) 40 Left Ankle (cm) 22.1 WC - Nurse 2 - General Ulcer CM Notes Start: 08/11/23 14:59 Freq: Status: Active Protocol: Activity Type Activity Date Activity User E-sign Co-sign Detail Recorded Client Recorded Date Recorded By Document 08/11/23 15:32 Laptop 08/11/23 15:34 Document 08/18/23 12:32 Laptop 08/18/23 12:36 08/11/23 08/18/23 15:32 12:32 Wound Center Nurse 2 #1 LT LAT LEG -Time 15:33 12:34 -Correct Patient Yes Yes -Correct Side, Site, Position Yes Yes -Correct Procedure Yes Yes -Procedure Performed Yes Yes -Type of Procedure Debridement Debridement -Clinical Debridement Subcutaneous Subcutaneous -Tissue Removed Subcutaneous Subcutaneous -Post Debridement (cm) - Length 1.0 1.0 -Post Debridement (cm) - Width 0.5 0.4 -Post Debridement (cm) - Depth 1.0 0.5 -Total Square (Post) (cm) 0.50 0.40 -Area of Debridement (cm) - Length 1.0 1.0 -Area of Debridement (cm) - Width 0.5 0.4 -Total Square (Area) (cm) 0.50 0.40 -Tunneling No -Undermining/Tunneling No -Circular Undermining Yes No -Wound/Ulcer Outcome Not Healed Not Healed -Ulcer Cleansing Rinsed/ Rinsed/ Irrigated with Irrigated with Saline Saline -Foul Odor after Cleansing No No -Bioengineered Tissue No No -Bleeding Controlled with Pressure Pressure -Treatment Response Procedure Procedure Tolerated Well Tolerated Well -Offloading No No -Debridement - Subq, 1st 20sq cm Yes Yes Pain Scale: 0-10 Numeric Is Patient Pain Free? Yes Yes - Nurse 3 - General Ulcer D/C NN Start: 08/11/23 14:59 Freq: Status: Active Protocol: Activity Type Activity Date Activity User E-sign Co-sign Detail Recorded Client Recorded Date Recorded By Document 08/11/23 15:43 Desktop 08/11/23 15:48 Document 08/18/23 12:46 Desktop 08/18/23 12:47 08/11/23 08/18/23 15:43 12:46 Wound Care Center Nurse 3 #1 LT LAT LEG -Ulcer Cleansing Not Cleansed Rinsed/ Irrigated with Saline -Foul Odor after Cleansing No -Primary Dressing Applied Nugauze, Iodoform 1/4in -Primary Dressing Covered/Secured with Dry Gauze, Dry Gauze, Secured with Secured with Tape Tape -Nugauze, Iodoform 1/4in 1 Pain Scale: 0-10 Numeric Is Patient Pain Free? 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 All fines were discussed with the patient. All questions were answered to the patient's satisfaction. Excisional debridement of the full-thickness ulceration to the left leg with a number 3 mm dermal curette without incident. Predebridement measurement was 0.8 x 0.3 x 0.3 cm. Postdebridement measurement is 1.0 x 0.4 x 0.5 cm. Patient's ulceration was dressed with iodoform border foam and a Tubigrip. Patient is to change his dressing daily. Patient will be booked for surgical musculotendinous flap as well as I&D and washout of the left lower extremity. Patient will be placed on linezolid based on cultures and sensitivities. He will follow-up in 1 week. (2) Pain in left leg: CODE(S): M79.605 - Pain in left leg (3) Cellulitis of left leg: CODE(S): L03.116 - Cellulitis of left lower limb PLAN: Take antibiotics as written.
== END 2023-08-18 23:59 | disposition home or self-care (01) ==
LOC: WC 12:30
PROVIDERS: PCP Family Medicine Geriatric Medicine; Referring Provider Family Medicine Geriatric Medicine; Visit Provider Podiatrist Foot & Ankle Surgery
DX: S81.811A Laceration without foreign body, right lower leg, initial encounter (principal); I73.9 Peripheral vascular disease, unspecified; F17.200 Nicotine dependence, unspecified, uncomplicated; W23.1XXA Caught, crushed, jammed, or pinched between stationary objects, initial encounter; L03.116 Cellulitis of left lower limb; M79.605 Pain in left leg; R60.9 Edema, unspecified
CPT/HCPCS: 11042; 73590; 87070; 87075; 87077; 87186; 87205; 93923; 99215; G0463

== ENCOUNTER 2023-08-25 15:45 | Outpatient (RCR) | payer BC, SELFPAY ==
[2023-08-19 00:05] VITALS: BP 141/76; PULSE 76; RESP 16; TEMP 36.4
[2023-08-25 15:46] VITALS: BP 132/77; PULSE 74; RESP 18; TEMP 36.4
--- NOTE | 2023-08-25 17:07 | PN.PCM_ITS ---
History of Present Illness Date of Service: 08/25/23 Chief Complaint: Right leg laceration History of Wound: Right leg laceration for 1 month Subjective Subjective Mr. Corral is a 63-year-old male presenting to clinic today for follow-up of full-thickness ulceration to the left leg. Patient will be getting his antibiotics today. He has been performing home dressing changes with packing. He denies any pain to the leg. Denies trauma. Denies constitutional symptoms. No other pedal complaints at this time. Objective Data Objective Data Vital Signs: Vital Signs Temp Pulse Resp BP O2 Del Method 97.5 F L 74 18 132/77 H Room Air 08/25/23 15:46 08/25/23 15:46 08/25/23 15:46 08/25/23 15:46 08/25/23 15:46 Oxygen Delivery Method Room Air Physical Exam Narrative Neurovascular status is unchanged. Full-thickness ulceration appreciated to the lateral left leg measuring 0.6 x 0.5 x 0.7 cm. Wound tunnels and undermines. Blanchable erythema without proximal streaking is present. No pain with calf compression. Excisional debridement down to and including muscle and fascia with a number 5 mm dermal curette to the lateral left leg without incident. Predebridement measurement was 0.5 x 0.4 x 0.3 cm. Postdebridement measurement is 0.6 x 0.5 x 0.7 cm. Debridement Note Debridement Note Debridement Free Text: Excisional debridement down to and including muscle and fascia with a number 5 mm dermal curette to the lateral left leg without incident. Predebridement measurement was 0.5 x 0.4 x 0.3 cm. Postdebridement measurement is 0.6 x 0.5 x 0.7 cm. 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 Any new allergies or adverse reactions No Had a fall/change in ADL's that may No increase risk of falls Signs or symptoms of abuse and/or No neglect since last visit Have you been in the hospital since your No last visit? Has dressing in place as prescribed Yes Has compression in place as prescribed Yes Has offloadiing in place as prescribed No Experienced any changes in pain level or No management Left Footwear Regular Shoe Right Footwear Regular Shoe Pain Scale: 0-10 Numeric Is Patient Pain Free? Yes WC - Nurse 1 - General Ulcer Measurement Start: 08/25/23 15:46 Freq: Status: Active Protocol: Activity Type Activity Date Activity User E-sign Co-sign Detail Recorded Client Recorded Date Recorded By Document 08/25/23 15:46 KW Desktop 08/25/23 15:55 KW 08/25/23 15:46 Wound Center Nurse 1 #1 LT LAT LEG -Current Size (cm) - Length 0.6 -Current Size (cm) - Width 0.5 -Current Size (cm) - Depth 0.6 -Total Square Cm 0.30 -Undermining/Tunneling Yes -Undermining/Tunneling Starts (O'clock 6 ) -Undermining/Tunneling Ends (O'clock) 9 -Maximum Distance (cm) 0.4 -Exudate Amt Small -Exudate Type Serosanguineous -Wound Margin Distinct, Outline Attached -Granulation Amt Large (67-100%) -Granulation Quality Red -Texture (Maddy-wound Skin Appearance) Assessed -Moisture (Maddy-wound Skin Appearance) Assessed -Color (Maddy-wound Skin Appearance) Assessed -Temperature (Maddy-wound Skin No Abnormality Appearance) (Pt Warm) -Ulcer Cleansing Rinsed/ Irrigated with Saline -Foul Odor after Cleansing No -Anesthetic Used 5% Lidocaine Gel Left Calf (cm) 38.2 Left Ankle (cm) 23.5 - Nurse 2 - General Ulcer CM Notes Start: 08/25/23 15:46 Freq: Status: Active Protocol: Activity Type Activity Date Activity User E-sign Co-sign Detail Recorded Client Recorded Date Recorded By Document 08/25/23 16:37 Laptop 08/25/23 16:40 08/25/23 16:37 Wound Center Nurse 2 #1 LT LAT LEG -Time 16:38 -Correct Patient Yes -Correct Side, Site, Position Yes -Correct Procedure Yes -Procedure Performed Yes -Type of Procedure Debridement -Clinical Debridement Muscle / Fascia -Tissue Removed Muscle -Post Debridement (cm) - Length 0.6 -Post Debridement (cm) - Width 0.5 -Post Debridement (cm) - Depth 0.7 -Total Square (Post) (cm) 0.30 -Area of Debridement (cm) - Length 0.6 -Area of Debridement (cm) - Width 0.5 -Total Square (Area) (cm) 0.30 -Tunneling No -Undermining/Tunneling No -Circular Undermining No -Wound/Ulcer Outcome Not Healed -Ulcer Cleansing Rinsed/ Irrigated with Saline -Foul Odor after Cleansing No -Bioengineered Tissue No -Bleeding Controlled with Pressure -Treatment Response Procedure Tolerated Well -Offloading No -Debridement - Subq, 1st 20sq cm No -Debridement - Muscle / Fascia, 1st Yes 20sq cm Pain Scale: 0-10 Numeric Is Patient Pain Free? Yes - Nurse 3 - General Ulcer D/C NN Start: 08/25/23 15:46 Freq: Status: Active Protocol: Activity Type Activity Date Activity User E-sign Co-sign Detail Recorded Client Recorded Date Recorded By Document 08/25/23 16:44 Desktop 08/25/23 16:45 08/25/23 16:44 Wound Care Center Nurse 3 #1 LT LAT LEG -Ulcer Cleansing Not Cleansed -Foul Odor after Cleansing No -Primary Dressing Applied Nugauze, Iodoform 1/2in -Primary Dressing Covered/Secured with Dry Gauze & Roll Gauze, Secured with Tape -Nugauze, Iodoform 1/2in 1 Pain Scale: 0-10 Numeric Is Patient Pain Free? 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 All findings were discussed with the patient. All questions were answered to the patient satisfaction. Excisional debridement down to and including muscle and fascia with a number 5 mm dermal curette to the lateral left leg without incident. Predebridement measurement was 0.5 x 0.4 x 0.3 cm. Postdebridement measurement is 0.6 x 0.5 x 0.7 cm. The wound was dressed with packing dry sterile dressing and a single layer Tubigrip. Patient was instructed continue changing his packing daily. He will get his antibiotic today and take it as prescribed. He will follow-up in 1 week evaluation. We are restarting the patient for incision and drainage of musculotendinous flap to close his full-thickness wound/defect to the lateral left leg. Risk and benefits cussed with the patient great detail. He would like to move forward with surgery. (2) Cellulitis of left leg: CODE(S): L03.116 - Cellulitis of left lower limb (3) Pain in left leg: CODE(S): M79.605 - Pain in left leg
== END 2023-09-16 23:59 | disposition home or self-care (01) ==
LOC: WC 15:45
PROVIDERS: PCP Family Medicine Geriatric Medicine; Referring Provider Family Medicine Geriatric Medicine; Visit Provider Podiatrist Foot & Ankle Surgery
DX: S81.811A Laceration without foreign body, right lower leg, initial encounter (principal); L97.823 Non-pressure chronic ulcer of other part of left lower leg with necrosis of muscle; W23.1XXA Caught, crushed, jammed, or pinched between stationary objects, initial encounter; L03.116 Cellulitis of left lower limb; M79.605 Pain in left leg
CPT/HCPCS: 11043

== ENCOUNTER 2023-09-10 07:39 | Day surgery (SDC) | payer BC, SELFPAY ==
[2023-09-08 10:55] LABS: Magnesium 2.7 mg/dL (1.6-2.6)
[2023-09-10 07:59] VITALS: BP 126/82; PULSE 77; RESP 16; TEMP 36.7; O2SAT 96; BMI 30.2
[2023-09-10] MEDS: Lactated Ringers 1,000 ML 15 ML IV (08:16)
[2023-09-10] MEDS: Magnesium 1 GM over 15 mins IV (08:16)
[2023-09-10] MEDS: Gabapentin 600 MG Tablet PO (08:17)
[2023-09-10] MEDS: Acetaminophen 500 MG Tablet 1000 MG PO (08:17)
[2023-09-10 08:41] LABS: Bedside Glucose 85 mg/dL (74-106)
[2023-09-10] MEDS: Cefazolin 2 GM in 0.9% Normal Saline (100mL Bag) 100 ML IV (09:54)
[2023-09-10] MEDS: Bupivacaine Mpf 0.5% 30 ML VIAL (10:05)
[2023-09-10 11:00] VITALS: BP 126/82; BP 129/75; PULSE 73; RESP 16; TEMP 36.8; O2SAT 94
--- NOTE | 2023-09-10 11:00 | PCM.OPRPT ---
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 Non-pressure ulcer with muscle exposed, left lower extremity 2. Pain, left lower extremity Post-Operative Diagnosis: 1. Non-pressure ulcer with muscle exposed, left lower extremity 2. Pain, left lower extremity Surgery/Procedure Performed:: 1. Excision debridement, full-thickness ulceration, left lower extremity 2. Repair of skin/muscle defect with fasciocutaneous flap, left lower extremity Description of Surgical Findings:: 1. Complete removal of the full-thickness ulceration/defect, left lower extremity 2. Complete closure of the full-thickness ulceration/defect with fasciocutaneous flap, left lower extremity Surgeon: Hung Reis body builder: None Type of Anesthesia: General and Local Anesthesiologist: Kofi Lomas Special Medications: None Specimen's removed: None Drains: None Estimated Blood Loss (mL): 10 mL Fluids Replaced: Per anesthesia Description of Procedure: Indications For Operation: Mr. Corral is a 63-year-old male who was admitted to [facility] for surgical repair of muscle and skin deficit to the left lateral leg. Patient was seen multiple times in the wound care center treated for a deep tissue infection with oral antibiotics and presents today for elective surgery consisting of repair of muscle and skin using a fasciocutaneous flap to the lateral left leg. Due to chronicity of the full-thickness ulceration which is nonpressure down to muscle and has deemed necessary at this time to take the patient to the operating room and perform a musculocutaneous flap to the soft tissue defect of the lateral left leg.. The nature of the problem, anticipated procedures, postop recovery/convalences and risk/complications include but not limited to infection, wound healing complications, hypertrophic scarring, numbness, tingling, chronic pain, CRPS, over and under correction, recurrence of deformity, DVT and or PE and the need for further surgery have been discussed in great detail with the patient. All questions have been answered to the patient's satisfaction. There are no guarantees given as to the outcome of the procedure. Description of Procedure: Under mild sedation, the patient was brought into the operating room and placed on the operating table in supine position. Once the patient was under general anesthesia with Laryngeal Mask Airway, the left lower extremity was blocked using approximately 20 cc 0.5% Marcaine plain proximal to the surgical area. Next, a well-padded thigh tourniquet was applied to the left lower extremity. Next, the left lower extremity was prepped and draped in normal aseptic manner. Next, a timeout was then undertaken verifying the correct patient, extremity, visibility of preoperative markings, availability of the equipment. Next, using a 6 inch esmarch the left lower extremity was exsanguinated, elevated to 60 degrees for 1 minute and the left thigh tourniquet was inflated to 275 mmHg. Next, attention was directed to the lateral left leg where the soft tissue defect was present. In initial inspection of the full-thickness ulceration there was no evidence of erythema, proximal streaking nor infection. Using the Misonix device the full-thickness ulceration was debrided down to including subcutaneous tissue, fascia and muscle without incident. All necrotic tissue was removed. Next, using a sterile skin marker a 3-1 incision was mapped out over the defect followed by the mapping out for the [place] fasciocutaneous flap. Next, using a #15 blade the full-thickness ulceration was excised, removed and passed the back table to be discarded. Continued sharp dissection with a #15 blade was made along the incision lines for the [place] fasciocutaneous flap at 90 degrees from the North and South point of the 3-1 incision followed by a long curvilinear incision to the lateral aspect of the full-thickness ulceration. Continued blunt dissection was carried down to the level of fascia/muscle using straight scissors. Care was taken to delicately handle the fasciocutaneous flap. Care was also taken not to undermine the flap to devascularize the area. Using a single prong skin hook, the flap was freed from the donor site and able to easily move to the recipient site without incident as well as with very little tension. At this time all incisions as well as a full-thickness ulceration defect was flushed with copious casper of normal saline. The flap was moved delicately to the recipient site without tension. Bioskin 4 x 4 cm was placed in the soft tissue defect. Using 4-0 nylon suture, the recipient site was closed with simple interrupted suture technique. At this time the tourniquet was deflated and reperfusion was noted to the left lower extremity. The distal ends of the flap were incised using a #15 blade and sutured in place to prevent any dogears. The curvilinear incision at the recipient site was closed with 4-0 nylon in simple interrupted suture technique, followed by the 90 degree incisions which were then closed with 4-0 nylon in simple interrupted suture technique. Care with suturing was taken to avoid any knots to the fasciocutaneous flap. The left lower extremity was wiped clean and patted dry. Care was taken to do hematoma rolls over the flap to prevent any deep hematoma's that could eventually cause the flap to fail. The left lower extremity incisions were dressed with Betadine soaked Adaptic, dry sterile dressing and a 2 layer AO Alfred splint was applied to the left lower extremity. The patient tolerated the procedure and anesthesia well and apparent satisfactory condition and was transported to the PACU for further monitoring prior to discharge home. Vital signs stable and vascular status intact to all digits bilateral. Post Operative Plan: Weightbearing: Nonweightbearing left lower extremity Antibiotics: 2 g Ancef through the IV DVT Prophylaxis: Ambulation López: None Dressing: Betadine soaked Adaptic, dry sterile dressing 2 layer AO Alfred splint Pain Medication: Percocet 5/325 Follow-up: [address] Reis in private office. Long discussion with the patient before surgery in regards to decreasing all tension to the flap of the left leg. It was educated to the patient that if he applies pressure, range of motion, weightbearing there is a chance that the flap could fail and he will need additional surgery to remove the necrotic tissue followed by wound care to the lateral leg defect. Patient was understanding before surgery as well as after surgery regarding his weightbearing status to the left leg. Grafts/Implants Used: Dark Skull Studioskin 4 cm x 4 cm Complications None Admit VTE Documentation VTE Present on Admission: Yes VTE Mechan Device Prophylaxis: SCD's VTE Pharm Prophylaxis ordered?: Yes
[2023-09-10 11:15] VITALS: BP 126/82; BP 127/83; PULSE 65; RESP 16; O2SAT 95
[2023-09-10 11:24] VITALS: BP 125/74; BP 126/82; PULSE 66; RESP 16; TEMP 527.7; TEMP 982; O2SAT 95
[2023-09-10 11:37] VITALS: BP 126/82
== END 2023-09-10 12:00 | disposition home or self-care (01) ==
LOC: SDC 07:39 → AC 09:56
PROVIDERS: PCP Family Medicine Geriatric Medicine; Referring Provider Podiatrist Foot & Ankle Surgery; Visit Provider Podiatrist Foot & Ankle Surgery
PROC: (CPT 15738; principal; 2023-09-10 09:45)
DX: L97.923 Non-pressure chronic ulcer of unspecified part of left lower leg with necrosis of muscle (principal); M79.605 Pain in left leg; Z79.899 Other long term (current) drug therapy
CPT/HCPCS: 15738; 01470; 36415; 82962; 83735; 87081; 93005; J7120; J2405; J3475

== ENCOUNTER → 2023-09-28 | Outpatient (CLI) | payer BC, SELFPAY | END | disposition home or self-care (01) | PROVIDERS: PCP Family Medicine Geriatric Medicine; Visit Provider Podiatrist Foot & Ankle Surgery | DX: L97.923 Non-pressure chronic ulcer of unspecified part of left lower leg with necrosis of muscle (principal) | CPT/HCPCS: 87070; 87075; 87077; 87101; 87186; 87205 ==

== ENCOUNTER → 2023-10-05 | Outpatient (CLI) | payer BC, SELFPAY ==
[2023-10-05 17:56] LABS: Absolute Neutrophil Count 3.2 X10^3/uL (2.0-7.7); Basophil# 0.04 X10^3/uL; Basophil% 0.7 % (0-1); Eosinophil# 0.09 X10^3/uL; Eosinophils% 1.6 % (0-5); Hematocrit 47.1 % (40-54); Hemoglobin 15.5 g/dL (13.0-16.5); Lymphocyte % 23.3 % (19-41); Mean Corp Hgb Conc 32.9 g/dL (32-36); Mean Corpuscular Hgb 31.9 pg (27.0-32.0); Mean Corpuscular Volume 96.9 fL (80-94); Mean Platelet Vol. 9.6 fl (6.2-12.0); Monocyte# 0.96 X10^3/uL; Monocyte% 17.2 % (0-10); NRBC Flagged by Analyzer 0 % (0-5); Neutrophil # 3.16 X10^3/uL (2.7-7.7); Neutrophil % 56.8 % (47-70); Platelet Count 312 K/mm3 (150-450); RBC Distribution Width CV 15.6 % (11.6-14.6); RBC Distribution Width SD 54.7 fl (35.1-43.9); Red Blood Count 4.86 M/mm3 (4.6-6.2); White Blood Count 5.6 K/mm3 (4.4-11.0)
[2023-10-05 18:15] LABS: AST(SGOT) 32 U/L (15-37); Alanine Aminotransfer ALT/SGPT 57 U/L (16-61); Albumin, Serum 3.7 g/dL (3.2-5.0); Alkaline Phosphatase 57 U/L (45-117); Anion Gap 8 (5-15); BUN 27 mg/dL (7-18); BUN/Creat Ratio 24.8 RATIO (10-20); Calcium,Total 9.4 mg/dL (8.5-10.1); Chloride 104 mmol/L (98-107); Creatinine, Serum 1.09 mg/dL (0.70-1.30); EST Glomerular Filtration Rate 72 mL/min (>60); Est Glom Filt Rate - Afr Amer 88 mL/min (>60); Globulin 3.7 g/dL (2.2-4.2); Glucose 95 mg/dL (74-106); PSA,Total - Annual Screen 2.42 ng/mL (0.00-4.00); Potassium 4.2 mmol/L (3.5-5.1); Protein, Total 7.4 g/dL (6.4-8.2); Sodium Level 141 mmol/L (136-145); Thyroid Stim Hormone (TSH) 1.06 uIU/mL (0.358-3.74)
== END | disposition home or self-care (01) ==
LOC: POLAB3 16:07
PROVIDERS: PCP Family Medicine Geriatric Medicine; Visit Provider Family Medicine Geriatric Medicine
DX: I10 Essential (primary) hypertension (principal); Z12.5 Encounter for screening for malignant neoplasm of prostate
CPT/HCPCS: 36415; 80053; 84153; 84443; 85025; G0103

== ENCOUNTER → 2024-04-19 | Outpatient (CLI) | payer MEDICARE, SELFPAY ==
[2024-04-19 09:08] LABS: Absolute Lymphocyte Count 0.49 X10^3/uL (0.83-4.51); Absolute Neutrophil Count 4.7 X10^3/uL (2.0-7.7); Basophil# 0.02 X10^3/uL; Basophil% 0.3 % (0-1); Eosinophil# 0.18 X10^3/uL; Eosinophils% 2.8 % (0-5); Hematocrit 48.6 % (40-54); Hemoglobin 16.6 g/dL (13.0-16.5); Lymphocyte # 0.49 X10^3/ul (0.83-4.51); Lymphocyte % 7.7 % (19-41); Mean Corp Hgb Conc 34.2 g/dL (32-36); Mean Corpuscular Hgb 31.5 pg (27.0-32.0); Mean Corpuscular Volume 92.2 fL (80-94); Mean Platelet Vol. 9.5 fl (6.2-12.0); Monocyte# 0.97 X10^3/uL; Monocyte% 15.3 % (0-10); NRBC Flagged by Analyzer 0 % (0-5); Neutrophil # 4.68 X10^3/uL (2.7-7.7); Neutrophil % 73.6 % (47-70); POSITIVE DIFFERENTIAL YES; Platelet Count 195 K/mm3 (150-450); RBC Distribution Width SD 47.9 fl (35.1-43.9); Red Blood Count 5.27 M/mm3 (4.6-6.2); White Blood Count 6.4 K/mm3 (4.4-11.0)
[2024-04-19 09:49] LABS: ALB/GLOB Ratio 0.8 RATIO (0.9-2.4); AST(SGOT) 38 U/L (15-37); Alanine Aminotransfer ALT/SGPT 58 U/L (16-61); Albumin, Serum 3.2 g/dL (3.2-5.0); Alkaline Phosphatase 50 U/L (45-117); Anion Gap 9 (5-15); BUN 13 mg/dL (7-18); BUN/Creat Ratio 10.6 RATIO (10-20); Calcium,Total 8.6 mg/dL (8.5-10.1); Chloride 98 mmol/L (98-107); Cholesterol 147 mg/dL (200); Creatinine, Serum 1.23 mg/dL (0.70-1.30); EST Glomerular Filtration Rate 63 mL/min (>60); Est Glom Filt Rate - Afr Amer 76 mL/min (>60); Globulin 4.1 g/dL (2.2-4.2); Glucose 126 mg/dL (74-106); High Density Lipoprotein 37 mg/dL; Potassium 3.1 mmol/L (3.5-5.1); Protein, Total 7.3 g/dL (6.4-8.2); Sodium Level 130 mmol/L (136-145); Thyroid Stim Hormone (TSH) 1.36 uIU/mL (0.358-3.74); Triglycerides 74 mg/dL; Very Low Density Lipoprotein 15 mg/dL (5-40)
== END | disposition home or self-care (01) ==
PROVIDERS: PCP Family Medicine Geriatric Medicine; Referring Provider Family Medicine Geriatric Medicine; Visit Provider Family Medicine Geriatric Medicine
DX: F52.8 Other sexual dysfunction not due to a substance or known physiological condition (principal); I10 Essential (primary) hypertension; E78.5 Hyperlipidemia, unspecified
CPT/HCPCS: 36415; 80053; 80061; 84403; 84443; 85025

== ENCOUNTER → 2024-04-26 | Outpatient (CLI) | payer MEDICARE, SELFPAY ==
[2024-04-26 08:23] LABS: Absolute Lymphocyte Count 1.19 X10^3/uL (0.83-4.51); Absolute Neutrophil Count 4.8 X10^3/uL (2.0-7.7); Basophil# 0.05 X10^3/uL; Basophil% 0.7 % (0-1); Eosinophils% 1.4 % (0-5); Hematocrit 46.3 % (40-54); Lymphocyte # 1.19 X10^3/ul (0.83-4.51); Lymphocyte % 16.5 % (19-41); Mean Corp Hgb Conc 32.4 g/dL (32-36); Mean Corpuscular Volume 95.7 fL (80-94); Mean Platelet Vol. 8.9 fl (6.2-12.0); Monocyte# 0.93 X10^3/uL; Monocyte% 12.9 % (0-10); NRBC Flagged by Analyzer 0 % (0-5); Neutrophil % 66.4 % (47-70); Platelet Count 413 K/mm3 (150-450); RBC Distribution Width CV 14.4 % (11.6-14.6); RBC Distribution Width SD 51.1 fl (35.1-43.9); Red Blood Count 4.84 M/mm3 (4.6-6.2); White Blood Count 7.2 K/mm3 (4.4-11.0)
[2024-04-26 08:52] LABS: ALB/GLOB Ratio 0.7 RATIO (0.9-2.4); AST(SGOT) 37 U/L (15-37); Alanine Aminotransfer ALT/SGPT 68 U/L (16-61); Alkaline Phosphatase 59 U/L (45-117); Anion Gap 5 (5-15); BUN 16 mg/dL (7-18); BUN/Creat Ratio 12.7 RATIO (10-20); Calcium,Total 8.8 mg/dL (8.5-10.1); Chloride 103 mmol/L (98-107); Creatinine, Serum 1.26 mg/dL (0.70-1.30); EST Glomerular Filtration Rate 61 mL/min (>60); Est Glom Filt Rate - Afr Amer 74 mL/min (>60); Globulin 4.2 g/dL (2.2-4.2); Glucose 129 mg/dL (74-106); Potassium 3.6 mmol/L (3.5-5.1); Protein, Total 7.2 g/dL (6.4-8.2); Sodium Level 137 mmol/L (136-145)
== END | disposition home or self-care (01) ==
PROVIDERS: PCP Family Medicine Geriatric Medicine; Referring Provider Family Medicine Geriatric Medicine; Visit Provider Family Medicine Geriatric Medicine
DX: I10 Essential (primary) hypertension (principal); R19.7 Diarrhea, unspecified
CPT/HCPCS: 36415; 80053; 82274; 83630; 85025; 87177; 87209; 87493

== ENCOUNTER → 2024-11-28 | Outpatient (CLI) | payer MEDICARE, SELFPAY | END | disposition home or self-care (01) | LOC: PSN 11:59 | PROVIDERS: PCP Family Medicine Geriatric Medicine; Referring Provider Family Medicine Geriatric Medicine; Visit Provider Family Medicine Geriatric Medicine | DX: R68.83 Chills (without fever) (principal) | CPT/HCPCS: 87631 ==

== ENCOUNTER → 2024-12-05 | Outpatient (CLI) | payer MEDICARE, SELFPAY ==
[2024-12-05 09:24] LABS: Absolute Lymphocyte Count 0.91 X10^3/uL (0.83-4.51); Absolute Neutrophil Count 3.6 X10^3/uL (2.0-7.7); Basophil# 0.08 X10^3/uL; Basophil% 1.3 % (0-1); Eosinophil# 0.29 X10^3/uL; Eosinophils% 4.8 % (0-5); Hemoglobin 16.5 g/dL (13.0-16.5); Lymphocyte # 0.91 X10^3/ul (0.83-4.51); Mean Corp Hgb Conc 34.4 g/dL (32-36); Mean Corpuscular Hgb 31.7 pg (27.0-32.0); Mean Corpuscular Volume 92.1 fL (80-94); Mean Platelet Vol. 9.6 fl (6.2-12.0); Monocyte# 1.18 X10^3/uL; Monocyte% 19.5 % (0-10); NRBC Flagged by Analyzer 0 % (0-5); Neutrophil # 3.58 X10^3/uL (2.7-7.7); Neutrophil % 59.1 % (47-70); Platelet Count 258 K/mm3 (150-450); RBC Distribution Width CV 13.2 % (11.6-14.6); Red Blood Count 5.21 M/mm3 (4.6-6.2); White Blood Count 6.1 K/mm3 (4.4-11.0)
[2024-12-05 10:41] LABS: ALB/GLOB Ratio 0.9 RATIO (0.9-2.4); AST(SGOT) 41 U/L (15-37); Alanine Aminotransfer ALT/SGPT 54 U/L (16-61); Albumin, Serum 3.5 g/dL (3.2-5.0); Alkaline Phosphatase 83 U/L (45-117); Anion Gap 6 (5-15); BUN 14 mg/dL (7-18); BUN/Creat Ratio 9.2 RATIO (10-20); Calcium,Total 9.3 mg/dL (8.5-10.1); Chloride 104 mmol/L (98-107); Cholesterol 158 mg/dL (200); Creatinine, Serum 1.52 mg/dL (0.70-1.30); EST Glomerular Filtration Rate 49 mL/min (>60); Est Glom Filt Rate - Afr Amer 59 mL/min (>60); Globulin 4.1 g/dL (2.2-4.2); Glucose 93 mg/dL (74-106); High Density Lipoprotein 51 mg/dL; PSA,Total - Annual Screen 0.68 ng/mL (0.00-4.00); Potassium 3.9 mmol/L (3.5-5.1); Protein, Total 7.6 g/dL (6.4-8.2); Sodium Level 139 mmol/L (136-145); Thyroid Stim Hormone (TSH) 0.837 uIU/mL (0.358-3.740); Triglycerides 76 mg/dL; Very Low Density Lipoprotein 15 mg/dL (5-40)
[2024-12-07 16:36] LABS: Vitamin D,25 Hydroxy 28.7 ng/mL
== END | disposition home or self-care (01) ==
LOC: LAB 08:55
PROVIDERS: PCP Family Medicine Geriatric Medicine; Referring Provider Family Medicine Geriatric Medicine; Visit Provider Family Medicine Geriatric Medicine
DX: I10 Essential (primary) hypertension (principal); E55.9 Vitamin D deficiency, unspecified; E78.5 Hyperlipidemia, unspecified; Z12.5 Encounter for screening for malignant neoplasm of prostate
CPT/HCPCS: 36415; 80053; 80061; 82306; 84153; 84443; 85025; G0103

== ENCOUNTER → 2024-12-07 | Outpatient (CLI) | payer MEDICARE, SELFPAY ==
--- NOTE | 2024-12-07 12:05 | RAD_ITS ---
PROCEDURE: PA and lateral chest radiographs, two views REASON FOR EXAM: Wheezing TECHNIQUE: PA and lateral chest radiographs were obtained. COMPARISON: 11/20/2020 FINDINGS: The cardiomediastinal silhouette is similar. Bones are osteopenic with degenerative changes in the spine. There are similar scattered coarse interstitial markings in the mid to lower lungs bilaterally, without focal airspace consolidation or pleural effusion. On the lateral projection, there are questionable new focal areas of sclerosis involving posterior inferior aspects of a few of the lower thoracic vertebral bodies, a proximally T8 and T9 RAD/Chest PA and Lateral IMPRESSION: Some scattered coarse interstitial markings in the mid to lower lungs bilateral ly are not significantly changed, and could reflect a component of chronic interstitial lung disease. No focal pneumonia o r sizable pleural effusion. There are possible Possible new areas of sclerosis involving the posterior inferior aspect of a fe w lower thoracic spine on the lateral projection, a proximally T8-T9. These could represent foci of sclerotic metastatic disease versus artifact from superimposed structures. Suggest short-term follow-up CT or MRI evaluation for clarification. If there are persistent symptoms, short-term follow-up chest CT evaluation may be helpful. Reading Location: [facility]
== END | disposition home or self-care (01) ==
LOC: PSN 10:13
PROVIDERS: PCP Family Medicine Geriatric Medicine; Referring Provider Family Medicine Geriatric Medicine; Visit Provider Family Medicine Geriatric Medicine
DX: R06.2 Wheezing (principal); R68.83 Chills (without fever)
CPT/HCPCS: 71046; 87631

== ENCOUNTER → 2024-12-07 | Outpatient (CLI) | payer MEDICARE, SELFPAY ==
[2024-12-07 12:32] LABS: Absolute Lymphocyte Count 0.95 X10^3/uL (0.83-4.51); Absolute Neutrophil Count 7.1 X10^3/uL (2.0-7.7); Basophil# 0.02 X10^3/uL; Basophil% 0.2 % (0-1); Eosinophil# 0.01 X10^3/uL; Eosinophils% 0.1 % (0-5); Hematocrit 46.3 % (40-54); Hemoglobin 15.6 g/dL (13.0-16.5); Lymphocyte # 0.95 X10^3/ul (0.83-4.51); Lymphocyte % 9.7 % (19-41); Mean Corp Hgb Conc 33.7 g/dL (32-36); Mean Corpuscular Hgb 30.7 pg (27.0-32.0); Mean Corpuscular Volume 91.1 fL (80-94); Mean Platelet Vol. 9.7 fl (6.2-12.0); Monocyte% 17.4 % (0-10); NRBC Flagged by Analyzer 0 % (0-5); Neutrophil # 7.06 X10^3/uL (2.7-7.7); Neutrophil % 72.2 % (47-70); POSITIVE DIFFERENTIAL YES; Platelet Count 262 K/mm3 (150-450); RBC Distribution Width SD 43.3 fl (35.1-43.9); Red Blood Count 5.08 M/mm3 (4.6-6.2); White Blood Count 9.8 K/mm3 (4.4-11.0)
[2024-12-07 12:33] LABS: Differential Indicated SCAN CRITERIA MET
[2024-12-07 13:08] LABS: Anion Gap 6 (5-15); BUN 23 mg/dL (7-18); BUN/Creat Ratio 17.6 RATIO (10-20); Calcium,Total 9.2 mg/dL (8.5-10.1); Chloride 106 mmol/L (98-107); Creatinine, Serum 1.31 mg/dL (0.70-1.30); EST Glomerular Filtration Rate 58 mL/min (>60); Est Glom Filt Rate - Afr Amer 71 mL/min (>60); Glucose 108 mg/dL (74-106); Sodium Level 140 mmol/L (136-145)
== END | disposition home or self-care (01) ==
PROVIDERS: PCP Family Medicine Geriatric Medicine; Referring Provider Family Medicine Geriatric Medicine; Visit Provider Family Medicine Geriatric Medicine
DX: J18.9 Pneumonia, unspecified organism (principal); R06.2 Wheezing; R05.9 Cough, unspecified; I10 Essential (primary) hypertension
CPT/HCPCS: 36415; 80048; 85025; 87070; 87205

== ENCOUNTER → 2025-01-11 | Outpatient (CLI) | payer MEDICARE, SELFPAY ==
--- NOTE | 2025-01-11 13:46 | CT_ITS ---
PROCEDURE: SPINE THORACIC WITHOUT CONTRAS REASON FOR EXAM: THORACIC BACK PAIN TECHNIQUE: Thoracic spine CT without contrast. Coronal and Sagittal reconstruction series were provided. One or more dose reduction techniques were used (e.g., Automated exposure control, adjustment of the mA and/or kV according to patient size, use of iterative reconstruction technique). RADIATION DOSE SUMMARY: CTDlvol: 19 mGy DLP: 1544.45 mGycm COMPARISON: None FINDINGS: Alignment: Normal alignment. Bones: Normal thoracic vertebral heights. No acute fracture. Multilevel degenerative disc disease. No suspicious lytic or blastic lesion. Multilevel spondylosis. 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 Soft Tissues: Unremarkable Other: Unremarkable CT/Spine Thoracic without Contras IMPRESSION: NO ACUTE THORACIC FRACTURE. DEGENERATIVE CHANGES. Reading Location: [place] [id number]
--- NOTE | 2025-01-11 14:01 | CT_ITS ---
PROCEDURE: CHEST WITHOUT CONTRAST 01/11/2025 REASON FOR EXAM: 64-year-old male, recent bronchitis with lingering cough, previous smoking history. TECHNIQUE: Chest CT without contrast. Coronal and Sagittal reconstruction series were provided. One or more dose reduction techniques were used (e.g., Automated exposure control, adjustment of the mA and/or kV according to patient size, use of iterative reconstruction technique RADIATION DOSE SUMMARY: CTDlvol: 40 mGy DLP: 1600 mGycm COMPARISON: Chest radiograph 11/2024. FINDINGS: Hardware: None. Lymph nodes: No axillary, mediastinal or hilar lymphadenopathy. Heart and Vasculature: The heart is normal in size without pericardial effusion. Minimal coronary artery calcifications. Moderate calcific plaque of the aortic valve. The great vessels are normal in caliber. Lungs and Airways: Central airways are patent. Mild bibasilar atelectasis/scarring. No bronchial wall thickening, honeycombing or reticulations. Scattered tiny bilateral pulmonary nodules (for example within the left lower lobe series 4, images 65, 70, 73 and 74). No pleural effusion or pneumothorax. Upper Abdomen: Left upper pole renal cyst. Hepatic cyst. Bones/soft tissues: Degenerative changes of the thoracic spine. Bilateral glenohumeral joint arthrosis. Subcutaneous cyst along the upper midline posterior back, likely a sebaceous cyst. CT/Chest without Contrast IMPRESSION: 1. Tiny bilateral pulmonary nodules, likely noncalcified granulomas or scarring . If patient is high risk, follow-up CT chest in 1 year could be obtained. Otherwise no follow-up is indicated. 2. No pulmonary fibrosis, consolidation or pleural effusion. Reading Location: [id number]
== END | disposition home or self-care (01) ==
PROVIDERS: PCP Family Medicine Geriatric Medicine; Referring Provider Family Medicine Geriatric Medicine; Visit Provider Family Medicine Geriatric Medicine
DX: J18.9 Pneumonia, unspecified organism (principal); M54.6 Pain in thoracic spine
CPT/HCPCS: 71250; 72128

== ENCOUNTER → 2025-02-07 | Outpatient (CLI) | payer MEDICARE, SELFPAY ==
--- NOTE | 2025-02-07 09:43 | CPS ---
Order was for pre and post bronchodilator
== END | disposition home or self-care (01) ==
PROVIDERS: PCP Family Medicine Geriatric Medicine; Referring Provider Family Medicine Geriatric Medicine; Visit Provider Family Medicine Geriatric Medicine
DX: R06.02 Shortness of breath (principal)
CPT/HCPCS: 94060

== ENCOUNTER → 2025-10-15 | Outpatient (CLI) | payer MEDICARE, SELFPAY ==
[2025-10-15 09:40] LABS: Hematocrit 48.0 % (40-54); Hemoglobin 16.4 g/dL (13.0-16.5); Immature Granulocytes Count 0.020 X10^3/uL (0.0-0.0); Mean Corp Hgb Conc 34.2 g/dL (32-36); Mean Corpuscular Volume 95.0 fL (80-94); Mean Platelet Vol. 9.4 fl (6.2-12.0); NRBC Flagged by Analyzer 0 % (0-5); Platelet Count 260 K/mm3 (150-450); RBC Distribution Width CV 12.9 % (11.6-14.6); RBC Distribution Width SD 44.5 fl (35.1-43.9); Red Blood Count 5.05 M/mm3 (4.6-6.2); White Blood Count 5.4 K/mm3 (4.4-11.0)
[2025-10-15 10:13] LABS: AST(SGOT) 52 U/L (<=37); Alanine Aminotransfer ALT/SGPT 42 U/L (<=46); Albumin, Serum 4.3 g/dL (3.4-4.8); Alkaline Phosphatase 82 U/L (40-129); Anion Gap 10 (7-18); BUN 7 mg/dL (4-19); BUN/Creat Ratio 7.6 RATIO (10-20); Calcium,Total 9.5 mg/dL (7.6-11.0); Carbon Dioxide 28.7 mmol/L (20.0-29.0); Chloride 103 mmol/L (96-106); Globulin 2.8 g/dL (2.2-4.2); Glucose 106 mg/dL (70-99); Potassium 4.1 mmol/L (3.5-5.1); Vitamin D,25 Hydroxy 32.7 ng/mL (30-100)
[2025-10-15 17:23] LABS: Xtra Tube Kwok EXTRA TUBE
== END | disposition home or self-care (01) ==
LOC: POLAB3 09:14
PROVIDERS: PCP Family Medicine Geriatric Medicine; Visit Provider Family Medicine Geriatric Medicine
DX: I10 Essential (primary) hypertension (principal); E55.9 Vitamin D deficiency, unspecified
CPT/HCPCS: 36415; 80053; 82306; 84443; 85025